=== PATIENT | male | born 1965 ===

== ENCOUNTER 2018-06-28 10:00 | Emergency (ER) | payer OTHER ==
[2018-06-28 14:32] LABS: BASO % 0.4 % (0.0-2.0); EOS % 0.3 % (0.0-4.0); HEMOGLOBIN 16.6 g/dL (12.0-18.0); LYMPH # 2.5 K/uL (1.0-4.3); LYMPH % 27.7 % (20.0-40.0); MEAN CELL VOLUME 92.1 fl (80.0-94.0); MEAN CORPUSCULAR HEMOGLOBIN 30.9 pg (27.0-31.0); MEAN CORPUSCULAR HGB CONC 33.5 g/dL (33.0-37.0); MEAN PLATELET VOLUME 10.5 fl (7.2-11.7); MONO # 0.5 K/uL (0.0-0.8); MONO % 5.3 % (0.0-10.0); NEUT % 66.3 % (50.0-75.0); NRBC % 0.3 % (0.0-0.0); RBC 5.37 Mil/uL (4.40-5.90); RED CELL DISTRIBUTION WIDTH 12.6 % (11.5-14.5)
[2018-06-28 14:34] LABS: BLOOD UREA NITROGEN 13 mg/dl (9-20); CALCIUM 9.8 mg/dL (8.4-10.2); GFR NON-AFRICAN AMERICAN > 60
[2018-06-28 14:35] LABS: BARBITURATES, UR NEGATIVE (NEGATIVE); BENZODIAZEPINES, UR NEGATIVE (NEGATIVE); OPIATES, UR NEGATIVE (NEGATIVE); PHENCYCLIDINE, UR NEGATIVE (NEGATIVE)
[2018-06-28 15:46] VITALS: BP 131/80; PULSE 65; RESP 16; TEMP 98.9; O2SAT 99
--- NOTE | 2018-06-28 16:08 | CT ---
Date of service: 06/28/2018 PROCEDURE: CT HEAD WITHOUT CONTRAST. HISTORY: headache COMPARISON: None. TECHNIQUE: Axial computed tomography images were obtained through the head/brain without intravenous contrast. Supplemental Coronal and Sagittal projections created and reviewed. Radiation dose: Total exam DLP = 738.27 mGy-cm. This CT exam was performed using one or more of the following dose reduction techniques: Automated exposure control, adjustment of the mA and/or kV according to patient size, and/or use of iterative reconstruction technique. FINDINGS: HEMORRHAGE: No intracranial hemorrhage. BRAIN: No mass effect or edema. No atrophy or chronic microvascular ischemic changes. VENTRICLES: Unremarkable. No hydrocephalus. CALVARIUM: Unremarkable. PARANASAL SINUSES: Unremarkable as visualized. No significant inflammatory changes. MASTOID AIR CELLS: Unremarkable as visualized. No inflammatory changes. OTHER FINDINGS: None. IMPRESSION: No acute intracranial abnormalities. No significant findings to account for the clinical presentation.
--- NOTE | 2018-07-02 09:13 | CARD ---
APPROVED REPORT Date of service: 06/28/2018 EKG Measurement Heart [id number] <Conclusion> Normal sinus rhythm Left axis deviation Abnormal ECG
== END 2018-06-28 17:00 | disposition home or self-care (01) ==
LOC: H.ER 10:00 → H.EDDOWN 10:00 → H.ER 17:00
DX: R51 Headache (principal); E11.9 Type 2 diabetes mellitus without complications; F19.10 Other psychoactive substance abuse, uncomplicated

== ENCOUNTER 2018-06-29 21:45 | Inpatient (IN) | payer OTHER ==
[2018-06-29] MEDS ORDERED: Sodium Chloride 0.9% 50 ML IV ONE (22:24)
[2018-06-29] MEDS ORDERED: Iodixanol 320 MG/ML 100 ML BOTTLE IV ONE (22:24)
--- NOTE | 2018-06-29 22:24 | ED PDOC ---
HPI: Seizure Time Seen by Provider: 06/29/18 21:55 Chief Complaint (Nursing): Seizure Chief Complaint (Provider): Seizure History Per: Family History/Exam Limitations: no limitations Recent Seizure Activity Began: Hours Ago: (x 3) Number Of Seizures: One Length Of Seizures (Duration): Unknown Quality Of Seizure: Focal Involving: Precipitating Factor(s): None Additional Complaint(s): 53 year old male with medical history of DM presents to the ED with headache, two episodes of vomiting, new onset seizure and nystagmus. Around 7pm tonight, three hours prior to arrival, patient had a witnessed seizure. His family then called EMS. In ambulance, according to family, patient threw up blood and was given no medications. Difficult to obtain history from . However, patient's sister reports this was his first seizure. After discharge yesterday, patient stayed in bed all day because he was tired and unable to walk or talk. Patient was seen in this ED yesterday at 10:00 for evaluation of right sided headache and discharged with a diagnosis of diabetes and Metformin. He was previously diagnosed with hypertension in [facility] and does not take any medications for it. He is unable to provide history due to clinical condition. PMD: none provided NIHSS Stroke Scale - Date/Time Evaluation Performed Date Performed: 06/29/18 Time Performed: 09:50 When Was NIHSS Performed: Baseline - How Severe is the Stroke Level of Consciousness: 1=Drowsy (arousable to minor stimuli) LOC to Questions: 1=One correct (month and age) LOC to commands: 2=Neither correct (diffcult to evaluate rest of exam because patient is not following commands. However, he was seen moving all extremities) Best Gaze: 1=Partial gaze palsy (horizontal partial gaze palsy that can be overcome) Visual: 0=No visual loss Facial: 0=Normal Motor Arm - Left: 0=No drift Motor Arm - Right: 0=No drift Motor Leg - Left: 0=No drift Motor Leg - Right: 0=No drift Limb Ataxia: 0=Absent Sensory: 0=Normal Best Language: 0=No aphasia Dysarthia: 0=Normal articulation Extinction & Inattention (Neglect): 0=Normal, no object Score: 5 Past Medical History Reviewed: Historical Data, Nursing Documentation, Vital Signs Vital Signs: Last Vital Signs Temp 96.7 F L 06/29/18 21:48 Pulse 84 06/29/18 21:48 Resp 18 06/29/18 21:48 BP 144/62 06/29/18 21:48 Pulse Ox 98 06/29/18 21:48 - Medical History PMH: Diabetes, HTN Denies: Chronic Kidney Disease - Surgical History Surgical History: No Surg Hx - Family History Family History: States: Unknown Family Hx - Home Medications Home Medications: Ambulatory Orders Medication Instructions Recorded metFORMIN [glucOPHAGE] 250 mg PO BID #60 tab 06/28/18 - Allergies Allergies/Adverse Reactions: Allergies Allergy/AdvReac Type Severity Reaction Status Date / Time No Known Allergies Allergy Verified 06/29/18 21:48 Review of Systems ROS Statement: Except As Marked, All Systems Reviewed And Found Negative Eyes: Positive for: Other (right nystagmus ) Neurological: Positive for: Seizures (1; x 3 hours prior to arrival), Altered Mental Status, Headache (right) Physical Exam - Reviewed Nursing Documentation Reviewed: Yes Vital Signs Reviewed: Yes - Physical Exam Appears: Positive for: In Acute Distress Head Exam: Positive for: ATRAUMATIC, NORMAL INSPECTION, NORMOCEPHALIC Skin: Positive for: Normal Color, Warm, Dry Eye Exam: Positive for: Nystagmus (new onset, right sided nystagmus) Neck: Positive for: Normal, Painless ROM, Supple Cardiovascular/Chest: Positive for: Regular Rate, Rhythm. Negative for: Murmur Respiratory: Positive for: Normal Breath Sounds. Negative for: Wheezing, Respiratory Distress Gastrointestinal/Abdominal: Positive for: Normal Exam, Soft. Negative for: Tenderness Back: Positive for: Normal Inspection. Negative for: L CVA Tenderness, R CVA Tenderness Extremity: Positive for: Normal ROM (moving all extremities slowly). Negative for: Deformity Neurological/Psych: Positive for: Other (Slowly increasing following commands as evaluation went on) - Laboratory Results Result Diagrams: 07/04/18 04:30 07/04/18 04:30 - ECG O2 Sat by Pulse Oximetry: 98 - Core Measure Core Measure Indicators: Code Stroke - Critical Care Total Time (In Min): 60 Medical Decision Making Medical Decision Makin:05 MDM: new onset seizure activity r/o stroke; hyperglycemia with newly onset diabetes yesterday --CT Head w/o contrast --CK-MB --BNP --Creatinine --CRP --Lipid panel --T3 --T4 --TSH --Troponin --Vitamin B12 --ESR --UA 22:30 Results read to this provider from radiologist: CT is unremarkable. Waiting on results of CT angio. Patient began vomiting in CT requiring Zofran. He is complaining of severe headache and is favoring his left side. Lactate level 6.1. --Blood type --VBG --Acetaminophen --Alcohol --CMP --UDS --Salicylate --Troponin --BNP --CBC w diff --PTT --PT --NS IV 1,000 mls 23:[address] Stockton and discussed case. He recommends aspirin and admission. Will follow up with patient. Low suspicion for stroke. --Ativan 2 mg IV --Aspirin 325 mg PO --Toradol 30 mg IM --Reglan 10 mg PO --- Scribe Attestation: Documented by Ariella Sousa, acting as a scribe Chato Maria MD Provider Scribe Attestation: All medical record entries made by the Scribe were at my direction and personally dictated by me. I have reviewed the chart and agree that the record accurately reflects my personal performance of the history, physical exam, medical decision making, and the department course for this patient. I have also personally directed, reviewed, and agree with the discharge instructions and disposition. Disposition - Clinical Impression Clinical Impression: Seizure disorder, Substance abuse, Headache - Disposition Disposition Time: 23:00 Condition: GUARDED
[2018-06-29] MEDS ORDERED: Sodium Chloride 0.9% 1,000 ML IV STA ×2 (22:31→23:07)
[2018-06-29 22:39] LABS: VENOUS BLOOD GAS BASE EXCESS -2.4 mmol/L (0.0-2.0); VENOUS BLOOD GAS PCO2 42 mmHg (40-60); VENOUS BLOOD GAS PO2 29 mm/Hg (30-55); VENOUS BLOOD PH 7.35 (7.32-7.43)
[2018-06-29 22:46] LABS: BASO % 0.2 % (0.0-2.0); EOS % 0.1 % (0.0-4.0); HEMOGLOBIN 16.4 g/dL (12.0-18.0); LYMPH # 1.3 K/uL (1.0-4.3); LYMPH % 11.7 % (20.0-40.0); MEAN CELL VOLUME 92.6 fl (80.0-94.0); MEAN CORPUSCULAR HEMOGLOBIN 30.5 pg (27.0-31.0); MEAN CORPUSCULAR HGB CONC 32.9 g/dL (33.0-37.0); MEAN PLATELET VOLUME 10.8 fl (7.2-11.7); MONO # 0.5 K/uL (0.0-0.8); MONO % 4.5 % (0.0-10.0); NEUT # 9.6 K/uL (1.8-7.0); NEUT % 83.5 % (50.0-75.0); NRBC % 0.2 % (0.0-0.0); RBC 5.39 Mil/uL (4.40-5.90); RED CELL DISTRIBUTION WIDTH 12.3 % (11.5-14.5); WHITE BLOOD COUNT 11.5 K/uL (4.8-10.8)
[2018-06-29 22:54] LABS: PROTHROMBIN TIME 11.1 Seconds (9.8-13.1)
[2018-06-29 23:01] LABS: ALB/GLOB RATIO 1.4 (1.0-2.1); ALBUMIN 4.6 g/dL (3.5-5.0); ALT/SGPT 31 U/L (21-72); AST/SGOT 21 U/L (17-59); BLOOD UREA NITROGEN 10 mg/dl (9-20); CALCIUM 9.7 mg/dL (8.4-10.2); GFR NON-AFRICAN AMERICAN > 60
[2018-06-29 23:01] LABS: ACETAMINOPHEN < 10.0 ug/ml (10.0-30.0); SALICYLATE < 1.0 mg/dl
[2018-06-29] MEDS ORDERED: Aspirin 325 mg EC Tablets PO ONE (23:51)
[2018-06-29] MEDS: Aspirin 325 mg EC Tablets PO SCH ×2 (23:58→23:59)
[2018-06-30] MEDS ORDERED: Glucagon Recombinant 1 mg Inj IM PRN (00:33)
[2018-06-30] MEDS ORDERED: Dextrose 50% SYRINGE Inj (50 ml) IV PRN (00:33)
--- NOTE | 2018-06-30 00:57 | CP.PCM.HP ---
<Susan Osman - Last Filed: 06/30/18 01:52> History of Present Illness - History of Present Illness History of Present Illness: This is 53 y/o male with PMH of HTN and recently diagnosed DM-II admitted to [facility] for evaluation and treatment of new onset seizures. As per family, Patient had witnessed seizure like activities where he was found to have with nystagmus and bloody vomiting. Patient was confused and lethargic at home, family denies any previous episodes of seizures but reports patient has been c/o headaches since last few days. Patient was seen in this ED yesterday at 10:00 for e valuation of right sided headache and discharged with a diagnosis of diabetes and Metformin. He was previously diagnosed with hypertension in [facility] and does not take any medications for it. He is unable to provide history due to clinical condition but currently patient is AAOx3, denies any chest pain, SOB, or abdominal pain. PMD: None PMH: HTN and Newly diagnosed DM-II PSH: Denies Meds: Denies Allg: NKDA SH: + 1 pack/day smoking, + illicit drug use/cocaine and + daily alcohol use FH: + DM-II and Heart disease ROS: As per HPI ER Course: VS: Stable, afebrile, HR 84, 144/62, Spo2 98% RA CBC: wbc 11.5 VBG: P02 29, Lactate 6.1 CMP: Anion gap 22, BS 347 Negative trop Urine drug + cocaine yesterday Code Stroke in ER S/p CT head: no stroke S/p Neuro consult S/p Ativan 2 mg IV , Aspirin 325 mg PO, Toradol 30 mg IM, Reglan 10 mg PO S/p 2L bolus NS Present on Admission - Present on Admission Any Indicators Present on Admission: No History of DVT/PE: No History of Uncontrolled Diabetes: No Review of Systems - Constitutional Constitutional: Headache. absent: Excessive Sweating, Frequent Falls - EENT Eyes: absent: Blurred Vision Ears: absent: Decreased Hearing Nose/Mouth/Throat: absent: Nasal Congestion - Cardiovascular Cardiovascular: absent: Chest Pain - Respiratory Respiratory: absent: Cough, Dyspnea, Wheezing - Gastrointestinal Gastrointestinal: absent: Abdominal Pain - Genitourinary Genitourinary: absent: Change in Urinary Stream - Musculoskeletal Musculoskeletal: absent: Abnormal Gait - Integumentary Integumentary: absent: Changing Lesions, Rash - Neurological Neurological: absent: Abnormal Hearing - Psychiatric Psychiatric: absent: Anxiety - Endocrine Endocrine: absent: Excessive Sweating - Hematologic/Lymphatic Hematologic: absent: Easy Bleeding Past Patient History - Past Social History Smoking Status: Light Smoker < 10 Cigarettes Daily - CARDIAC Hx Hypertension: Yes - PULMONARY Hx Respiratory Disorders: No - NEUROLOGICAL Hx Neurological Disorder: No - HEENT Hx HEENT Problems: No - RENAL Hx Chronic Kidney Disease: No - ENDOCRINE/METABOLIC Hx Endocrine Disorders: No Hx Diabetes Mellitus Type 2: Yes (recently diagnosed) - HEMATOLOGICAL/ONCOLOGICAL Hx Blood Disorders: No - INTEGUMENTARY Hx Dermatological Problems: No - MUSCULOSKELETAL/RHEUMATOLOGICAL Hx Musculoskeletal Disorders: No - GASTROINTESTINAL Hx Gastrointestinal Disorders: No - GENITOURINARY/GYNECOLOGICAL Hx Genitourinary Disorders: No - PSYCHIATRIC Hx Psychophysiologic Disorder: No Hx Substance Use: No - SURGICAL HISTORY Hx Surgeries: No - ANESTHESIA Hx Anesthesia: No Meds Allergies/Adverse Reactions: Allergies Allergy/AdvReac Type Severity Reaction Status Date / Time No Known Allergies Allergy Verified 06/29/18 21:48 Physical Exam - Constitutional Appears: No Acute Distress - Head Exam Head Exam: ATRAUMATIC, NORMAL INSPECTION, NORMOCEPHALIC - Eye Exam Eye Exam: EOMI, Normal appearance, PERRL Pupil Exam: NORMAL ACCOMODATION - ENT Exam ENT Exam: Mucous Membranes Moist - Neck Exam Neck exam: Positive for: Normal Inspection - Respiratory Exam Respiratory Exam: Clear to Auscultation Bilateral, NORMAL BREATHING PATTERN. absent: Wheezes - Cardiovascular Exam Cardiovascular Exam: REGULAR RHYTHM, +S1, +S2 - GI/Abdominal Exam GI & Abdominal Exam: Normal Bowel Sounds, Soft. absent: Tenderness - Extremities Exam Extremities exam: Positive for: normal inspection. Negative for: tenderness - Back Exam Back exam: NORMAL INSPECTION. absent: CVA tenderness (L), CVA tenderness (R) - Neurological Exam Neurological exam: Alert, CN II-XII Intact, Oriented x3 - Skin Skin Exam: Dry, Intact, Normal Color, Warm Results - Vital Signs Recent Vital Signs: Last Vital Signs Temp 99.9 F H 06/30/18 00:49 Pulse 86 06/30/18 00:49 Resp 17 06/30/18 00:49 BP 149/95 H 06/30/18 00:49 Pulse Ox 100 06/30/18 00:49 - Labs Result Diagrams: 06/29/18 22:31 06/29/18 22:34 Labs: Laboratory Results - last 24 hr 06/29/18 06/29/18 06/29/18 21:55 22:31 22:31 WBC 11.5 H RBC 5.39 Hgb 16.4 Hct 49.9 MCV 92.6 MCH 30.5 MCHC 32.9 L RDW 12.3 Plt Count 241 MPV 10.8 Neut % (Auto) 83.5 H Lymph % (Auto) 11.7 L Dubois % (Auto) 4.5 Eos % (Auto) 0.1 Baso % (Auto) 0.2 Neut # (Auto) 9.6 H Lymph # (Auto) 1.3 Dubois # (Auto) 0.5 Eos # (Auto) 0.0 Baso # (Auto) 0.0 PT INR APTT pO2 VBG pH VBG pCO2 VBG HCO3 VBG Total CO2 VBG O2 Sat (Calc) VBG Base Excess VBG Potassium Sodium Chloride Glucose Lactate FiO2 Crit Value Called To Crit Value Called By Crit Value Read Back Blood Gas Notified Time Potassium Carbon Dioxide Anion Gap BUN Creatinine Est GFR ( Amer) Est GFR (Non-Af Amer) POC Glucose (mg/dL) 364 H Random Glucose Calcium Total Bilirubin AST ALT Alkaline Phosphatase Troponin I Total Protein Albumin Globulin Albumin/Globulin Ratio Venous Blood Potassium Salicylates < 1.0 Acetaminophen < 10.0 L Alcohol, Quantitative Blood Type Antibody Screen BBK History Checked 06/29/18 06/29/18 06/29/18 22:33 22:34 22:34 WBC RBC Hgb Hct MCV MCH MCHC RDW Plt Count MPV Neut % (Auto) Lymph % (Auto) Dubois % (Auto) Eos % (Auto) Baso % (Auto) Neut # (Auto) Lymph # (Auto) Dubois # (Auto) Eos # (Auto) Baso # (Auto) PT 11.1 INR 1.0 APTT 28.0 pO2 29 L VBG pH 7.35 VBG pCO2 42 VBG HCO3 21.8 VBG Total CO2 24.5 VBG O2 Sat (Calc) 62.9 VBG Base Excess -2.4 L VBG Potassium 4.4 Sodium 134.0 136 Chloride 98.0 98 Glucose 373 H Lactate 6.1 H* FiO2 21.0 Crit Value Called To Kaleigh segovia md Crit Value Called By 6075 Crit Value Read Back Y Blood Gas Notified Time 2239 Potassium 4.2 Carbon Dioxide 20 L Anion Gap 22 H BUN 10 Creatinine 0.9 Est GFR ( Amer) > 60 Est GFR (Non-Af Amer) > 60 POC Glucose (mg/dL) Random Glucose 347 H Calcium 9.7 Total Bilirubin 0.6 AST 21 ALT 31 Alkaline Phosphatase 112 Troponin I < 0.0120 Total Protein 7.9 Albumin 4.6 Globulin 3.3 Albumin/Globulin Ratio 1.4 Venous Blood Potassium 4.4 Salicylates Acetaminophen Alcohol, Quantitative < 10 Blood Type Antibody Screen BBK History Checked 06/29/18 22:34 WBC RBC Hgb Hct MCV MCH MCHC RDW Plt Count MPV Neut % (Auto) Lymph % (Auto) Dubois % (Auto) Eos % (Auto) Baso % (Auto) Neut # (Auto) Lymph # (Auto) Dubois # (Auto) Eos # (Auto) Baso # (Auto) PT INR APTT pO2 VBG pH VBG pCO2 VBG HCO3 VBG Total CO2 VBG O2 Sat (Calc) VBG Base Excess VBG Potassium Sodium Chloride Glucose Lactate FiO2 Crit Value Called To Crit Value Called By Crit Value Read Back Blood Gas Notified Time Potassium Carbon Dioxide Anion Gap BUN Creatinine Est GFR ( Amer) Est GFR (Non-Af Amer) POC Glucose (mg/dL) Random Glucose Calcium Total Bilirubin AST ALT Alkaline Phosphatase Troponin I Total Protein Albumin Globulin Albumin/Globulin Ratio Venous Blood Potassium Salicylates Acetaminophen Alcohol, Quantitative Blood Type A POSITIVE Antibody Screen Negative BBK History Checked No verified bt Assessment & Plan - Assessment and Plan (Free Text) Assessment: A/P: 53 y/o male with PMH of HTN and recently diagnosed DM-II admitted to [facility] for evaluation and treatment of new onset seizures. New Onset Seizures - Consult Neurology, Dr. Stockton, recommendations appreciated - EKG: NSR, LAD - F/u CXR - CT head: No stoke - F/u Head and neck CTA - F/u EEG tomorrow - F/u Urine drug, A1C, TSH, B12, Folate, Vit D, Lipids, Lactic acid, CRP, Prolactin - C/w IVF - Ativan 2mg PRN for seizures Headaches, Nausea and Vomiting - Acute - Tylenol PRN for headache - Zofran 4mg IV PRN Elevated Lactate in VBG - Likely due to Seizures - S/p 2L NS IVF - C/w Fluids Newly diagnosed DM-II - F/u A1C - Sliding scale and Hypoglycemic protocol - AccuCheck ACHS Hypertension - Chronic, not on any medication - Monitor, consider medication Case discussed and patient seen with Dr. Khan before midnight <Ru Khan - Last Filed: 06/30/18 06:41> Results - Vital Signs Recent Vital Signs: Last Vital Signs Temp 99.3 F 06/30/18 04:51 Pulse 77 06/30/18 04:51 Resp 18 06/30/18 04:51 BP 130/81 06/30/18 04:51 Pulse Ox 100 06/30/18 04:51 - Labs Result Diagrams: 06/30/18 05:00 06/30/18 05:00 Labs: Laboratory Results - last 24 hr 06/29/18 06/29/18 06/29/18 21:55 22:31 22:31 WBC 11.5 H RBC 5.39 Hgb 16.4 Hct 49.9 MCV 92.6 MCH 30.5 MCHC 32.9 L RDW 12.3 Plt Count 241 MPV 10.8 Neut % (Auto) 83.5 H Lymph % (Auto) 11.7 L Dubois % (Auto) 4.5 Eos % (Auto) 0.1 Baso % (Auto) 0.2 Neut # (Auto) 9.6 H Lymph # (Auto) 1.3 Dubois # (Auto) 0.5 Eos # (Auto) 0.0 Baso # (Auto) 0.0 PT INR APTT pO2 VBG pH VBG pCO2 VBG HCO3 VBG Total CO2 VBG O2 Sat (Calc) VBG Base Excess VBG Potassium Sodium Chloride Glucose Lactate FiO2 Crit Value Called To Crit Value Called By Crit Value Read Back Blood Gas Notified Time Potassium Carbon Dioxide Anion Gap BUN Creatinine Est GFR ( Amer) Est GFR (Non-Af Amer) POC Glucose (mg/dL) 364 H Random Glucose Lactic Acid Calcium Phosphorus Magnesium Total Bilirubin AST ALT Alkaline Phosphatase Troponin I Total Protein Albumin Globulin Albumin/Globulin Ratio Triglycerides Cholesterol LDL Cholesterol Direct HDL Cholesterol Venous Blood Potassium Salicylates < 1.0 Acetaminophen < 10.0 L Alcohol, Quantitative Blood Type Antibody Screen BBK History Checked 0406/29/18 06/29/18 22:33 22:34 22:34 WBC RBC Hgb Hct MCV MCH MCHC RDW Plt Count MPV Neut % (Auto) Lymph % (Auto) Dubois % (Auto) Eos % (Auto) Baso % (Auto) Neut # (Auto) Lymph # (Auto) Dubois # (Auto) Eos # (Auto) Baso # (Auto) PT 11.1 INR 1.0 APTT 28.0 pO2 29 L VBG pH 7.35 VBG pCO2 42 VBG HCO3 21.8 VBG Total CO2 24.5 VBG O2 Sat (Calc) 62.9 VBG Base Excess -2.4 L VBG Potassium 4.4 Sodium 134.0 136 Chloride 98.0 98 Glucose 373 H Lactate 6.1 H* FiO2 21.0 Crit Value Called To Kaleigh segovia md Crit Value Called By 6084 Crit Value Read Back Y Blood Gas Notified Time 2239 Potassium 4.2 Carbon Dioxide 20 L Anion Gap 22 H BUN 10 Creatinine 0.9 Est GFR ( Amer) > 60 Est GFR (Non-Af Amer) > 60 POC Glucose (mg/dL) Random Glucose 347 H Lactic Acid Calcium 9.7 Phosphorus Magnesium Total Bilirubin 0.6 AST 21 ALT 31 Alkaline Phosphatase 112 Troponin I < 0.0120 Total Protein 7.9 Albumin 4.6 Globulin 3.3 Albumin/Globulin Ratio 1.4 Triglycerides Cholesterol LDL Cholesterol Direct HDL Cholesterol Venous Blood Potassium 4.4 Salicylates Acetaminophen Alcohol, Quantitative < 10 Blood Type Antibody Screen BBK History Checked 06/29/18 06/30/18 06/30/18 22:34 05:00 05:00 WBC 15.0 H RBC 4.90 Hgb 14.9 Hct 45.0 MCV 91.8 MCH 30.4 MCHC 33.0 RDW 12.3 Plt Count 205 MPV 10.1 Neut % (Auto) 78.0 H Lymph % (Auto) 15.6 L Dubois % (Auto) 6.2 Eos % (Auto) 0.0 Baso % (Auto) 0.2 Neut # (Auto) 11.7 H Lymph # (Auto) 2.3 Dubois # (Auto) 0.9 H Eos # (Auto) 0.0 Baso # (Auto) 0.0 PT INR APTT pO2 VBG pH VBG pCO2 VBG HCO3 VBG Total CO2 VBG O2 Sat (Calc) VBG Base Excess VBG Potassium Sodium 138 Chloride 103 Glucose Lactate FiO2 Crit Value Called To Crit Value Called By Crit Value Read Back Blood Gas Notified Time Potassium 4.0 Carbon Dioxide 26 Anion Gap 13 BUN 11 Creatinine 0.8 Est GFR ( Amer) > 60 Est GFR (Non-Af Amer) > 60 POC Glucose (mg/dL) Random Glucose 204 H Lactic Acid Calcium 8.6 Phosphorus Magnesium Total Bilirubin 0.6 AST 19 ALT 33 Alkaline Phosphatase 84 Troponin I Total Protein 6.7 Albumin 3.8 Globulin 2.9 Albumin/Globulin Ratio 1.3 Triglycerides Cholesterol LDL Cholesterol Direct HDL Cholesterol Venous Blood Potassium Salicylates Acetaminophen Alcohol, Quantitative Blood Type A POSITIVE Antibody Screen Negative BBK History Checked No verified bt 06/30/18 06/30/18 06/30/18 05:00 05:20 05:27 WBC RBC Hgb Hct MCV MCH MCHC RDW Plt Count MPV Neut % (Auto) Lymph % (Auto) Dubois % (Auto) Eos % (Auto) Baso % (Auto) Neut # (Auto) Lymph # (Auto) Dubois # (Auto) Eos # (Auto) Baso # (Auto) PT INR APTT pO2 VBG pH VBG pCO2 VBG HCO3 VBG Total CO2 VBG O2 Sat (Calc) VBG Base Excess VBG Potassium Sodium Chloride Glucose Lactate FiO2 Crit Value Called To Crit Value Called By Crit Value Read Back Blood Gas Notified Time Potassium Carbon Dioxide Anion Gap BUN Creatinine Est GFR ( Amer) Est GFR (Non-Af Amer) POC Glucose (mg/dL) 228 H Random Glucose Lactic Acid 1.3 Calcium Phosphorus 3.9 Magnesium 1.7 Total Bilirubin AST ALT Alkaline Phosphatase Troponin I Total Protein Albumin Globulin Albumin/Globulin Ratio Triglycerides 117 Cholesterol 144 LDL Cholesterol Direct 77 HDL Cholesterol 41 Venous Blood Potassium Salicylates Acetaminophen Alcohol, Quantitative Blood Type Antibody Screen BBK History Checked Assessment & Plan - Assessment and Plan (Free Text) Plan: This is a late entry. Patient was seen by me in the ED before midnight on 06/29/18. History as documented by resident was reviewed with patient and resident. I performed the menjivar elements of exam and agree with the above findings. Diagnostics were reviewed and medical decision making and plan of care performed by me. 53 yo male with hx of HTN, PSA (active smoker, everyday drinker and cocaine and cannabis user) recently diagnosed yesterday in our ED with DM-II p/w witnessed seizure. Questionable bloody vomiting. History not very accurate as patient and family not able to provide much info. Upon my exam he was AAOx3 and neuro-exam was completely non-focal. Lungs clear b/l. S1/S2, RRR. CT head was negative and blood work unremarkable except for Lactic acid of 6.1 with gap of 22 and normal PH and a mild leukocytosis and glucose of 350. Neurology was called and recommended EEG and CTA head. Will admit to tele floor with frequent neuro-checks and will follow neurology recommendations. Seizure precautions. As needed Ativan for break-through seizure.
[2018-06-30] MEDS: Sodium Chloride 0.9% 1,000 ML IV SCH ×3 (01:57→19:50)
[2018-06-30 05:20] LABS: BASO % 0.2 % (0.0-2.0); HEMOGLOBIN 14.9 g/dL (12.0-18.0); LYMPH # 2.3 K/uL (1.0-4.3); LYMPH % 15.6 % (20.0-40.0); MEAN CELL VOLUME 91.8 fl (80.0-94.0); MEAN CORPUSCULAR HEMOGLOBIN 30.4 pg (27.0-31.0); MEAN PLATELET VOLUME 10.1 fl (7.2-11.7); MONO # 0.9 K/uL (0.0-0.8); MONO % 6.2 % (0.0-10.0); NEUT # 11.7 K/uL (1.8-7.0); RBC 4.9 Mil/uL (4.40-5.90); RED CELL DISTRIBUTION WIDTH 12.3 % (11.5-14.5)
[2018-06-30 05:39] LABS: ALB/GLOB RATIO 1.3 (1.0-2.1); ALBUMIN 3.8 g/dL (3.5-5.0); ALT/SGPT 33 U/L (21-72); AST/SGOT 19 U/L (17-59); BLOOD UREA NITROGEN 11 mg/dl (9-20); CALCIUM 8.6 mg/dL (8.4-10.2); GFR NON-AFRICAN AMERICAN > 60
[2018-06-30 07:05] LABS: URINE BILIRUBIN NEGATIVE (NEGATIVE); URINE BLOOD NEGATIVE (NEGATIVE); URINE CLARITY CLEAR (Clear); URINE COLOR YELLOW (YELLOW); URINE GLUCOSE (UA) >=500 mg/dL (NEGATIVE); URINE LEUKOCYTE ESTERASE NEG Leu/uL (Negative); URINE PROTEIN NEGATIVE (NEGATIVE); URINE UROBILINOGEN 0.2-1.0 mg/dL (0.2-1.0)
[2018-06-30 07:30] LABS: BARBITURATES, UR NEGATIVE (NEGATIVE); BENZODIAZEPINES, UR NEGATIVE (NEGATIVE); OPIATES, UR POSITIVE (NEGATIVE); PHENCYCLIDINE, UR NEGATIVE (NEGATIVE)
[2018-06-30] MEDS: Pantoprazole 40 mg EC Tab PO SCH (09:31)
[2018-06-30] MEDS: Insulin Lispro (humaLOG) 100 Units/ml Inj SC SCH ×4 (09:31→22:30)
--- NOTE | 2018-06-30 11:07 | CP.PCM.CON ---
History of Present Illness - History of Present Illness History of Present Illness: Initial Neurology Consultation Note Consultation requested by: Dr. Susan Osman Mr. Nikolai Lerner is a 53 y/o male with a PMHx of HTN and NIDDM who was admitted last night for new onset seizure. Spouse states that she witnessed him laying in bed at approx 8pm last night when he suddenly stopped responding to her, and at that time he began foaming at the mouth. Per spouse there was no shaking of the body or rigidity. He did not fall from the bed or sustain any head injury during this episode. Pt does state that he remembers having a right sided headache and blurred vision before this episode. Per the pt this is the first time he has had this happen to him. He states that he is usually healthy. He was recently diagnosed with NIDDM and started on Metformin while in the [place]. He does not have a PMD here in the [facility] but is willing to establish himself in the [facility]. He admits to "weekly" ETOH use; states that he drinks less than a 1 liter bottle of vodka once a week; last drink was approx 1 week ago. He also admits to cigarette and "occasional" marijuana use; refused any other drug use to me, however, family states that he uses cocaine and other drugs that they do not know the names of. Currently, the pt states that he feels good and offers no complaints. Denies h/a, dizziness, visual changes, chest pain, palpitations, sob, cough, dysuria, abd pain, n/v/d, fever/chills, paresthesias. Neurology has been consulted to assist in the management and care of this pt. Review of Systems - Constitutional Constitutional: As Per HPI - EENT Eyes: As Per HPI Ears: As Per HPI Nose/Mouth/Throat: As Per HPI - Cardiovascular Cardiovascular: As Per HPI - Respiratory Respiratory: As Per HPI - Gastrointestinal Gastrointestinal: As Per HPI - Genitourinary Genitourinary: As Per HPI - Reproductive: Male Reproductive:Male: As Per HPI - Musculoskeletal Musculoskeletal: As Per HPI - Integumentary Integumentary: As Per HPI - Neurological Neurological: As Per HPI - Psychiatric Psychiatric: As Per HPI - Endocrine Endocrine: As Per HPI - Hematologic/Lymphatic Hematologic: As Per HPI Past Patient History - Infectious Disease Hx of Infectious Diseases: None - Tetanus Immunizations Tetanus Immunization: Unknown - Past Medical History & Family History Past Medical History?: Yes Past Family History: Reviewed and not pertinent (6 siblings: denies PMHx; Mother has NIDDM; Father no PMHx per pt) - Past Social History Smoking Status: Light Smoker < 10 Cigarettes Daily Chewing Tobacco Use: No Cigar Use: No Occupation: works in a [employer] Alcohol: Other (weekly, less than 1 liter of vodka per pt; last drink 1 week ago) Drugs: Cannabis ("occasional" per pt ), Other (per family pt actively uses cocaine and other unknown drugs; pt denied drug use to me.) Home Situation {Lives}: With Family Domestic Violence: Negative - CARDIAC Hx Hypertension: Yes - PULMONARY Hx Respiratory Disorders: No - NEUROLOGICAL Hx Neurological Disorder: No - HEENT Hx HEENT Problems: No - RENAL Hx Chronic Kidney Disease: No - ENDOCRINE/METABOLIC Hx Endocrine Disorders: No Hx Diabetes Mellitus Type 2: Yes (recently diagnosed) - HEMATOLOGICAL/ONCOLOGICAL Hx Blood Disorders: No - INTEGUMENTARY Hx Dermatological Problems: No - MUSCULOSKELETAL/RHEUMATOLOGICAL Hx Musculoskeletal Disorders: No - GASTROINTESTINAL Hx Gastrointestinal Disorders: No - GENITOURINARY/GYNECOLOGICAL Hx Genitourinary Disorders: No - PSYCHIATRIC Hx Psychophysiologic Disorder: No Hx Substance Use: No - SURGICAL HISTORY Hx Surgeries: No - ANESTHESIA Hx Anesthesia: No Meds Allergies/Adverse Reactions: Allergies Allergy/AdvReac Type Severity Reaction Status Date / Time No Known Allergies Allergy Verified 06/29/18 21:48 - Medications Medications: Current Medications Acetaminophen (Tylenol 325mg Tab) 650 mg PO Q6 PRN PRN Reason: Headache Aspirin (Ecotrin) 325 mg PO DAILY [facility] Last Admin: 06/29/18 23:59 Dose: 325 mg Dextrose (Dextrose 50% Inj) 0 ml IV STAT PRN; Protocol PRN Reason: Hypoglycemia Protocol Dextrose (Glutose 15) 0 gm PO ONCE PRN; Protocol PRN Reason: Hypoglycemia Protocol Glucagon (Glucagen Diagnostic Kit) 0 mg IM STAT PRN; Protocol PRN Reason: Hypoglycemia Protocol Sodium Chloride (Sodium Chloride 0.9%) 1,000 mls @ 100 mls/hr IV .Q10H [facility] Last Admin: 06/30/18 01:57 Dose: 100 mls/hr Ibuprofen (Motrin Tab) 400 mg PO Q6 PRN PRN Reason: Pain, moderate (4-7) Insulin Human Lispro (Humalog) 0 units SC ACHS [facility]; Protocol Last Admin: 06/30/18 09:31 Dose: 3 units Ketorolac Tromethamine (Toradol) 15 mg IVP Q6 PRN PRN Reason: Pain, severe (8-10) Lorazepam (Ativan) 2 mg IVP Q6 PRN PRN Reason: Seizure activity Lorazepam (Ativan) 0.5 mg IVP Q6H PRN PRN Reason: Agitation Ondansetron HCl (Zofran Inj) 4 mg IVP Q6 PRN PRN Reason: Nausea/Vomiting Pantoprazole Sodium (Protonix Ec Tab) 40 mg PO DAILY [facility] Last Admin: 06/30/18 09:31 Dose: 40 mg Physical Exam - Constitutional Appears: Well, Non-toxic, No Acute Distress - Head Exam Head Exam: ATRAUMATIC, NORMAL INSPECTION, NORMOCEPHALIC - Eye Exam Eye Exam: EOMI, Normal appearance, PERRL. absent: Nystagmus Pupil Exam: NORMAL ACCOMODATION, PERRL Additional comments: No diplopia or blurred vision during exam per pt - ENT Exam ENT Exam: Mucous Membranes Moist, Normal Exam - Neck Exam Neck exam: Positive for: Full Rom, Normal Inspection - Respiratory Exam Respiratory Exam: NORMAL BREATHING PATTERN. absent: Accessory Muscle Use, Respiratory Distress - Cardiovascular Exam Cardiovascular Exam: REGULAR RHYTHM - GI/Abdominal Exam GI & Abdominal Exam: Soft. absent: Distended, Tenderness - Extremities Exam Extremities exam: Positive for: full ROM, normal inspection. Negative for: calf tenderness, pedal edema - Back Exam Back exam: FULL ROM, NORMAL INSPECTION - Neurological Exam Neurological exam: Alert, CN II-XII Intact, Oriented x3, Reflexes Normal Additional comments: Speech clear, fluid Follows all commands AAOx3 No facial asymmetry FROM to all extremities; no focal motor deficits. No dysmetria, no ataxia No sensory deficits. No tremors or abnormal movements. - Psychiatric Exam Psychiatric exam: Normal Mood Additional comments: Somewhat of a flat affect during the actual neuro interview and exam; unsure if he is in uncomfortable answering questions regarding his medical issues/drug use. After my exam was completed pt was smiling and making eye contact as normal. - Skin Skin Exam: Dry, Intact, Normal Color, Warm Results - Vital Signs Recent Vital Signs: Last Vital Signs Temp 97.8 F 06/30/18 08:06 Pulse 75 06/30/18 08:06 Resp 20 06/30/18 08:06 BP 104/52 L 06/30/18 08:06 Pulse Ox 99 06/30/18 08:06 - Labs Result Diagrams: 06/30/18 05:00 06/30/18 05:00 Labs: Laboratory Results - last 24 hr 06/29/18 06/29/18 06/29/18 21:55 22:31 22:31 WBC 11.5 H RBC 5.39 Hgb 16.4 Hct 49.9 MCV 92.6 MCH 30.5 MCHC 32.9 L RDW 12.3 Plt Count 241 MPV 10.8 Neut % (Auto) 83.5 H Lymph % (Auto) 11.7 L [place] % (Auto) 4.5 Eos % (Auto) 0.1 Baso % (Auto) 0.2 Neut # (Auto) 9.6 H Lymph # (Auto) 1.3 [place] # (Auto) 0.5 Eos # (Auto) 0.0 Baso # (Auto) 0.0 PT INR APTT pO2 VBG pH VBG pCO2 VBG HCO3 VBG Total CO2 VBG O2 Sat (Calc) VBG Base Excess VBG Potassium Sodium Chloride Glucose Lactate FiO2 Crit Value Called To Crit Value Called By Crit Value Read Back Blood Gas Notified Time Potassium Carbon Dioxide Anion Gap BUN Creatinine Est GFR ( Amer) Est GFR (Non-Af Amer) POC Glucose (mg/dL) 364 H Random Glucose Lactic Acid Calcium Phosphorus Magnesium Total Bilirubin AST ALT Alkaline Phosphatase Troponin I Total Protein Albumin Globulin Albumin/Globulin Ratio Triglycerides Cholesterol LDL Cholesterol Direct HDL Cholesterol Vitamin B12 Venous Blood Potassium Urine Color Urine Clarity Urine pH Ur Specific [place] Urine Protein Urine Glucose (UA) Urine Ketones Urine Blood Urine Nitrate Urine Bilirubin Urine Urobilinogen Ur Leukocyte Esterase Urine RBC (Auto) Urine Microscopic WBC Salicylates < 1.0 Urine Opiates Screen Urine Methadone Screen Acetaminophen < 10.0 L Ur Barbiturates Screen Ur Phencyclidine Scrn Ur Amphetamines Screen U Benzodiazepines Scrn U Oth Cocaine Metabols U Cannabinoids Screen Alcohol, Quantitative Blood Type Antibody Screen BBK History Checked 06/29/18 06/29/18 06/29/18 22:33 22:34 22:34 WBC RBC Hgb Hct MCV MCH MCHC RDW Plt Count MPV Neut % (Auto) Lymph % (Auto) [place] % (Auto) Eos % (Auto) Baso % (Auto) Neut # (Auto) Lymph # (Auto) [place] # (Auto) Eos # (Auto) Baso # (Auto) PT 11.1 INR 1.0 APTT 28.0 pO2 29 L VBG pH 7.35 VBG pCO2 42 VBG HCO3 21.8 VBG Total CO2 24.5 VBG O2 Sat (Calc) 62.9 VBG Base Excess -2.4 L VBG Potassium 4.4 Sodium 134.0 136 Chloride 98.0 98 Glucose 373 H Lactate 6.1 H* FiO2 21.0 Crit Value Called To Kaleigh segovia md Crit Value Called By 6075 Crit Value Read Back Y Blood Gas Notified Time 2239 Potassium 4.2 Carbon Dioxide 20 L Anion Gap 22 H BUN 10 Creatinine 0.9 Est GFR ( Amer) > 60 Est GFR (Non-Af Amer) > 60 POC Glucose (mg/dL) Random Glucose 347 H Lactic Acid Calcium 9.7 Phosphorus Magnesium Total Bilirubin 0.6 AST 21 ALT 31 Alkaline Phosphatase 112 Troponin I < 0.0120 Total Protein 7.9 Albumin 4.6 Globulin 3.3 Albumin/Globulin Ratio 1.4 Triglycerides Cholesterol LDL Cholesterol Direct HDL Cholesterol Vitamin B12 Venous Blood Potassium 4.4 Urine Color Urine Clarity Urine pH Ur Specific [place] Urine Protein Urine Glucose (UA) Urine Ketones Urine Blood Urine Nitrate Urine Bilirubin Urine Urobilinogen Ur Leukocyte Esterase Urine RBC (Auto) Urine Microscopic WBC Salicylates Urine Opiates Screen Urine Methadone Screen Acetaminophen Ur Barbiturates Screen Ur Phencyclidine Scrn Ur Amphetamines Screen U Benzodiazepines Scrn U Oth Cocaine Metabols U Cannabinoids Screen Alcohol, Quantitative < 10 Blood Type Antibody Screen BBK History Checked 06/29/18 06/30/18 06/30/18 22:34 05:00 05:00 WBC 15.0 H RBC 4.90 Hgb 14.9 Hct 45.0 MCV 91.8 MCH 30.4 MCHC 33.0 RDW 12.3 Plt Count 205 MPV 10.1 Neut % (Auto) 78.0 H Lymph % (Auto) 15.6 L [place] % (Auto) 6.2 Eos % (Auto) 0.0 Baso % (Auto) 0.2 Neut # (Auto) 11.7 H Lymph # (Auto) 2.3 [place] # (Auto) 0.9 H Eos # (Auto) 0.0 Baso # (Auto) 0.0 PT INR APTT pO2 VBG pH VBG pCO2 VBG HCO3 VBG Total CO2 VBG O2 Sat (Calc) VBG Base Excess VBG Potassium Sodium 138 Chloride 103 Glucose Lactate FiO2 Crit Value Called To Crit Value Called By Crit Value Read Back Blood Gas Notified Time Potassium 4.0 Carbon Dioxide 26 Anion Gap 13 BUN 11 Creatinine 0.8 Est GFR ( Amer) > 60 Est GFR (Non-Af Amer) > 60 POC Glucose (mg/dL) Random Glucose 204 H Lactic Acid Calcium 8.6 Phosphorus Magnesium Total Bilirubin 0.6 AST 19 ALT 33 Alkaline Phosphatase 84 Troponin I Total Protein 6.7 Albumin 3.8 Globulin 2.9 Albumin/Globulin Ratio 1.3 Triglycerides Cholesterol LDL Cholesterol Direct HDL Cholesterol Vitamin B12 Venous Blood Potassium Urine Color Urine Clarity Urine pH Ur Specific [place] Urine Protein Urine Glucose (UA) Urine Ketones Urine Blood Urine Nitrate Urine Bilirubin Urine Urobilinogen Ur Leukocyte Esterase Urine RBC (Auto) Urine Microscopic WBC Salicylates Urine Opiates Screen Urine Methadone Screen Acetaminophen Ur Barbiturates Screen Ur Phencyclidine Scrn Ur Amphetamines Screen U Benzodiazepines Scrn U Oth Cocaine Metabols U Cannabinoids Screen Alcohol, Quantitative Blood Type A POSITIVE Antibody Screen Negative BBK History Checked No verified bt 06/30/18 06/30/18 06/30/18 05:00 05:20 05:27 WBC RBC Hgb Hct MCV MCH MCHC RDW Plt Count MPV Neut % (Auto) Lymph % (Auto) [place] % (Auto) Eos % (Auto) Baso % (Auto) Neut # (Auto) Lymph # (Auto) [place] # (Auto) Eos # (Auto) Baso # (Auto) PT INR APTT pO2 VBG pH VBG pCO2 VBG HCO3 VBG Total CO2 VBG O2 Sat (Calc) VBG Base Excess VBG Potassium Sodium Chloride Glucose Lactate FiO2 Crit Value Called To Crit Value Called By Crit Value Read Back Blood Gas Notified Time Potassium Carbon Dioxide Anion Gap BUN Creatinine Est GFR ( Amer) Est GFR (Non-Af Amer) POC Glucose (mg/dL) 228 H Random Glucose Lactic Acid 1.3 Calcium Phosphorus 3.9 Magnesium 1.7 Total Bilirubin AST ALT Alkaline Phosphatase Troponin I Total Protein Albumin Globulin Albumin/Globulin Ratio Triglycerides 117 Cholesterol 144 LDL Cholesterol Direct 77 HDL Cholesterol 41 Vitamin B12 342 Venous Blood Potassium Urine Color Urine Clarity Urine pH Ur Specific [place] Urine Protein Urine Glucose (UA) Urine Ketones Urine Blood Urine Nitrate Urine Bilirubin Urine Urobilinogen Ur Leukocyte Esterase Urine RBC (Auto) Urine Microscopic WBC Salicylates Urine Opiates Screen Urine Methadone Screen Acetaminophen Ur Barbiturates Screen Ur Phencyclidine Scrn Ur Amphetamines Screen U Benzodiazepines Scrn U Oth Cocaine Metabols U Cannabinoids Screen Alcohol, Quantitative Blood Type Antibody Screen BBK History Checked 06/30/18 06/30/18 06:54 06:54 WBC RBC Hgb Hct MCV MCH MCHC RDW Plt Count MPV Neut % (Auto) Lymph % (Auto) [place] % (Auto) Eos % (Auto) Baso % (Auto) Neut # (Auto) Lymph # (Auto) [place] # (Auto) Eos # (Auto) Baso # (Auto) PT INR APTT pO2 VBG pH VBG pCO2 VBG HCO3 VBG Total CO2 VBG O2 Sat (Calc) VBG Base Excess VBG Potassium Sodium Chloride Glucose Lactate FiO2 Crit Value Called To Crit Value Called By Crit Value Read Back Blood Gas Notified Time Potassium Carbon Dioxide Anion Gap BUN Creatinine Est GFR ( Amer) Est GFR (Non-Af Amer) POC Glucose (mg/dL) Random Glucose Lactic Acid Calcium Phosphorus Magnesium Total Bilirubin AST ALT Alkaline Phosphatase Troponin I Total Protein Albumin Globulin Albumin/Globulin Ratio Triglycerides Cholesterol LDL Cholesterol Direct HDL Cholesterol Vitamin B12 Venous Blood Potassium Urine Color Yellow Urine Clarity Clear Urine pH 5.0 Ur Specific [place] 1.042 H Urine Protein Negative Urine Glucose (UA) >=500 Urine Ketones 20 Urine Blood Negative Urine Nitrate Negative Urine Bilirubin Negative Urine Urobilinogen 0.2-1.0 Ur Leukocyte Esterase Neg Urine RBC (Auto) 1 Urine Microscopic WBC 1 Salicylates Urine Opiates Screen Positive H Urine Methadone Screen Negative Acetaminophen Ur Barbiturates Screen Negative Ur Phencyclidine Scrn Negative Ur Amphetamines Screen Negative U Benzodiazepines Scrn Negative U Oth Cocaine Metabols Negative U Cannabinoids Screen Positive H Alcohol, Quantitative Blood Type Antibody Screen BBK History Checked Assessment & Plan (1) Seizure Assessment and Plan: Imaging reviewed: -CTA Head and Neck (06/29/18) prelim report: unremarkable -CT Head (06/29/18) prelim report: no acute intracranial abnormalities May be 2/2 pt's cocaine use and ETOH use. He is not exhibiting signs of ETOH withdrawal though. -For now we will have an EEG done. -Continue seizure precautions. -Hold AE medications for now. -Brain MRI ordered--f/u with results. -Recommend a psych eval for poss drug detox (if pt agrees; requested by family). -Notify neuro of any acute changes in pt's condition. Blanka Sellers DNP, PRINCIPAL PROCESS ENGINEER D/W Dr. Stockton Status: Acute - Date & Time Date: 06/30/18 Time: 11:57
--- NOTE | 2018-06-30 13:11 | CT ---
Date of service: 06/29/2018 PROCEDURE: CT HEAD WITHOUT CONTRAST. HISTORY: AMS, new seizure, r/o stroke COMPARISON: None available. TECHNIQUE: Axial computed tomography images were obtained through the head/brain without intravenous contrast. Radiation dose: Total exam DLP = 1118.0 mGy-cm. This CT exam was performed using one or more of the following dose reduction techniques: Automated exposure control, adjustment of the mA and/or kV according to patient size, and/or use of iterative reconstruction technique. FINDINGS: HEMORRHAGE: No intracranial hemorrhage. BRAIN: No mass effect or edema. No atrophy or chronic microvascular ischemic changes. VENTRICLES: Unremarkable. No hydrocephalus. CALVARIUM: Unremarkable. PARANASAL SINUSES: Unremarkable as visualized. No significant inflammatory changes. MASTOID AIR CELLS: Unremarkable as visualized. No inflammatory changes. OTHER FINDINGS: The report concurs with the preliminary [facility] report IMPRESSION: No acute intracranial findings
--- NOTE | 2018-06-30 13:15 | CT ---
Date of service: 06/29/2018 PROCEDURE: CT Angiography of the neck with contrast HISTORY: ams COMPARISON: None. TECHNIQUE: Contiguous axial images of the neck were obtained from the level of the skull-base to the superior mediastinum in the arteriographic phase of enhancement. Coronal and sagittal reformats or also generated. IV contrast dose: 90 cc of Visipaque Radiation dose: Total exam DLP = 482.95 mGy-cm. This CT exam was performed using one or more of the following dose reduction techniques: Automated exposure control, adjustment of the mA and/or kV according to patient size, and/or use of iterative reconstruction technique. FINDINGS: RIGHT CAROTID ARTERIES: Common Carotid Artery: Normal. Carotid Bifurcation: Normal. Internal Carotid Artery:Normal. External Carotid Artery (proximal branches): Normal. LEFT CAROTID ARTERIES: Common Carotid Artery: Normal. Carotid Bifurcation: Normal. Internal Carotid Artery:Normal. External Carotid Artery (proximal branches): Normal. VERTEBRAL ARTERIES: Right Vertebral Artery: Normal. Left Vertebral Artery: Normal. OTHER FINDINGS: no aortic atherosclerotic calcification or mural plaque present. IMPRESSION: Normal CT Angiography of the neck. CT Angiography of the Brain. HISTORY: ams COMPARISON: None available. TECHNIQUE: CT angiography of the intracranial arteries was performed. Coronal and sagittal maximum intensity projection reformated images were generated. Radiation dose: Total exam DLP = 482.95 mGy-cm. This CT exam was performed using one or more of the following dose reduction techniques: Automated exposure control, adjustment of the mA and/or kV according to patient size, and/or use of iterative reconstruction technique. FINDINGS: INTERNAL CEREBRAL ARTERIES: Unremarkable. The skull base, petrous, cavernous and supraclinoid segments are bilaterally widely patent. ANTERIOR CEREBRAL ARTERIES: Unremarkable. A1 and A2 segments are widely patent. Smaller distal branches unremarkable, as visualized. MIDDLE CEREBRAL ARTERIES: Unremarkable. M1 and M2 segments are widely patent. Perisylvian branches grossly symmetric. POSTERIOR CIRCULATION: Basilar Artery: Unremarkable. Distal Vertebral Arteries: Unremarkable. Posterior Cerebral Arteries: Unremarkable. Posterior Inferior Cerebellar Arteries: Unremarkable. ANEURYSM/ VASCULAR MALFORMATIONS: None. OTHER FINDINGS: The report concurs with the preliminary [facility] report IMPRESSION: Unremarkable CT Angiography of the Brain.
[2018-06-30 13:17] LABS: PROLACTIN 10.6 ng/mL (3.7-17.9)
[2018-06-30 13:20] LABS: FOLATE 16.9 ng/mL
--- NOTE | 2018-06-30 13:20 | RAD ---
Date of service: 06/30/2018 HISTORY: possible admission COMPARISON: No prior. TECHNIQUE: 1 view obtained. FINDINGS: LUNGS: No consolidation. Inspiration shallow. Possible concomitant granulomatous disease. PLEURA: No significant pleural effusion identified, no pneumothorax apparent. CARDIOVASCULAR: No aortic atherosclerotic calcification present. Probable mild cardiomegaly. No significant appearing pulmonary venous congestion. OSSEOUS STRUCTURES: Diffuse thoraco lumbar spondylosis. Bilateral shoulder arthrosis VISUALIZED UPPER ABDOMEN: Normal. OTHER FINDINGS: None. IMPRESSION: No consolidation. Mild cardiomegaly-chronicity unknown. Other findings as above.
--- NOTE | 2018-06-30 14:11 | CARD ---
APPROVED REPORT Date of service: 06/29/2018 EKG Measurement Heart [id number] <Conclusion> Normal sinus rhythm Left axis deviation Abnormal ECG
[2018-06-30] MEDS ORDERED: Valproate 1,000 MG in Sodium Chloride 0.9% 100 ML IVPB ONE (17:20)
--- NOTE | 2018-06-30 17:38 | PCM.EEG ---
Electroencephalogram Report - Electroencephalogram Report Procedure Date: 06/30/18 Medication: ASA, Depakote, Insulin Interpretation: Technical Information: This was a 16-channel EEG, 1-channel EKG , performed using an [employer] machine., electrodes were applied according to the 10/20 international placement system, impedances were less than 5 K Ohm. Start; 10;52 End; 11;40 Total 48 min RESULTS: Resting wakefulness was characterized by a symmetric posterior dominant rhythm of 8-9 Hz, 30-50 uV, which was reactive to eye opening and closing, with greater amplitudes on the right. Drowsiness (11;15) was associated with slow roving eye movements, slowing and fragmentation of the posterior dominant rhythm, and bilateral 4-7 Hz, 40-70 uV theta activity, sometimes with a shifting predominance. There were 3 seizures captured, 11;01 induced by photic stimulation, seizure onset was right post quadrant at 10 Hz, then build up on the right hemisphere with no spread. Duration 2 min 10 seconds. 11;13; Induced by HV, seizure onset was right post quadrant at 10 Hz, then build up on the right hemisphere with no spread, duration; 3 min. 11;26; Seizure onset was not seen, buildup and progression was right posterior quadrant to right hemisphere. Duration n can not tell, Photic stimulation was performed and there was a seizure induced by it. see above. Throughout the recording, there was evidence of intermittent right post qu adrant l l 3-6 Hz, 30-75 uV slowing. Impression: This is an abnormal EEG study due to the presence of 1- Three seizures were captured, all identical, all CPS (complex partial seizures) of right post quadrant onset. 2- Right post quadrant focal slowing. 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 Findings communicated with Dr Stockton
[2018-06-30] MEDS ORDERED: Ergocalciferol 50,000 Intl Units Cap PO STA (17:44)
[2018-07-01] MEDS: Sodium Chloride 0.9% 1,000 ML IV SCH ×2 (03:53→17:01)
[2018-07-01 07:00] LABS: BASO % 0.3 % (0.0-2.0); HEMOGLOBIN 14.7 g/dL (12.0-18.0); LYMPH # 1.8 K/uL (1.0-4.3); LYMPH % 14.1 % (20.0-40.0); MEAN CELL VOLUME 92.9 fl (80.0-94.0); MEAN CORPUSCULAR HEMOGLOBIN 31.4 pg (27.0-31.0); MEAN CORPUSCULAR HGB CONC 33.8 g/dL (33.0-37.0); MEAN PLATELET VOLUME 10.4 fl (7.2-11.7); MONO # 0.7 K/uL (0.0-0.8); MONO % 5.5 % (0.0-10.0); NEUT # 10.2 K/uL (1.8-7.0); NEUT % 80.1 % (50.0-75.0); RBC 4.68 Mil/uL (4.40-5.90); RED CELL DISTRIBUTION WIDTH 12.1 % (11.5-14.5); WHITE BLOOD COUNT 12.7 K/uL (4.8-10.8)
[2018-07-01 07:14] LABS: BLOOD UREA NITROGEN 13 mg/dl (9-20); CALCIUM 8.8 mg/dL (8.4-10.2); GFR NON-AFRICAN AMERICAN > 60
--- NOTE | 2018-07-01 08:41 | MRI ---
Date of service: 06/30/2018 PROCEDURE: MRI BRAIN WITHOUT CONTRAST HISTORY: new onset seizure COMPARISON: Noncontrast head CT 06/29/2018. TECHNIQUE: Multiplanar, multisequence MR images of the brain were obtained without intravenous contrast enhancement. FINDINGS: HEMORRHAGE: None DWI: There are multiple small areas of restricted diffusion identified at the right occipital lobe and minimally at the right frontal and parietal lobes as well. At least right MCA and [employer] distributions are affected and the pattern suggests embolic etiology, potentially is proximal as the aortic arch or heart. The left cerebral hemisphere spared as well as posterior fossa contents including the brainstem. BRAIN PARENCHYMA: No mass effect or edema. Trace chronic microangiopathy is appreciate the bilateral cerebral hemispheres, age-appropriate. Limited cortical edema mirrors diffusion-weighted imaging abnormalities. VENTRICLES: Unremarkable. No hydrocephalus. CRANIUM: Unremarkable. ORBITS: Grossly unremarkable. PARANASAL SINUSES/MASTOIDS: Limited right mastoid effusions noted as well as small cysts or polyps bilateral maxillary sinuses. VASCULAR SYSTEM: Skull base flow voids intact. OTHER FINDINGS: None. 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 Embolic etiology favored, potentially as proximal as the heart or aortic arch given multiple intracranial arterial distributions affected. No significant mass effect. No definitive intracranial hemorrhage identified. Minimal age related neuro degenerative findings. Concordant preliminary report from [facility], 6:31 p.m..
[2018-07-01] MEDS: Valproate 500 MG in Sodium Chloride 0.9% 100 ML IVPB SCH ×2 (08:52→20:51)
[2018-07-01] MEDS: Insulin Lispro (humaLOG) 100 Units/ml Inj SC SCH ×4 (08:52→22:32)
[2018-07-01] MEDS: Pantoprazole 40 mg EC Tab PO SCH (08:55)
[2018-07-01] MEDS ORDERED: levETIRAcetam 1,500 MG in Sodium Chloride 0.9% 100 ML IVPB ONE (11:19)
--- NOTE | 2018-07-01 11:23 | CP.PCM.PN ---
Subjective - Date & Time of Evaluation Date of Evaluation: 07/01/18 Time of Evaluation: 11:00 - Subjective Subjective: Neuro Follow-Up Note: Mr. Nikolai Lerner was evaluated this morning at bedside. Spouse also present. Pt states that he had a right sided h/a that was throbbing and approx 4/10 earlier this morning; no h/a since then. He also denies blurred or double vision today. Spouse verbalizes concerns to me that she suspects that the pt may not be telling the healthcare providers how he is really feeling physically. She states that his eyes were "going back and forth this morning." Primary RN also verbalized to me that the pt had nystagmus today, which was not present yesterday when I saw him. He denies to me difficulty with speech, dizziness, chest pain, palpitations, sob, cough, abd pain, n/v/d, paresthesias, fever/chills. Please note, at the end of my neuro exam, the pt had a complex partial seizure witnessed by me. He suddenly stated that he had a right sided h/a then became nonverbal, stopped following commands, lost eye contact, appeared unaware of surroundings; left arm and left leg became rigid. This episode lasted approx 15-20 seconds. Immediately after, the pt regained normal consciousness; began following commands as normal; knew he was in the hospital, knew who I was, knew who his spouse was; was unsure about the month and year. H/a also resolved immediately after this episode. My documented neuro exam is the what the pt exhibited to me before this episode occurred. Objective - Vital Signs/Intake and Output Vital Signs (last 24 hours): Temp Pulse Resp BP Pulse Ox 98.3 F 76 20 133/76 100 07/01/18 07:56 07/01/18 07:56 07/01/18 07:56 07/01/18 07:56 07/01/18 07:56 - Medications Medications: Current Medications Acetaminophen (Tylenol 325mg Tab) 650 mg PO Q6 PRN PRN Reason: Headache Last Admin: 07/01/18 03:47 Dose: 650 mg Aspirin (Ecotrin) 325 mg PO DAILY [facility] Last Admin: 06/29/18 23:59 Dose: 325 mg Atorvastatin Calcium (Lipitor) 40 mg PO DAILY [facility] Last Admin: 07/01/18 08:54 Dose: 40 mg Clopidogrel Bisulfate (Plavix) 75 mg PO DAILY [facility] Last Admin: 07/01/18 08:55 Dose: 75 mg Dextrose (Dextrose 50% Inj) 0 ml IV STAT PRN; Protocol PRN Reason: Hypoglycemia Protocol Dextrose (Glutose 15) 0 gm PO ONCE PRN; Protocol PRN Reason: Hypoglycemia Protocol Glucagon (Glucagen Diagnostic Kit) 0 mg IM STAT PRN; Protocol PRN Reason: Hypoglycemia Protocol Sodium Chloride (Sodium Chloride 0.9%) 1,000 mls @ 100 mls/hr IV .Q10H [facility] Last Admin: 06/30/18 13:10 Dose: 100 mls/hr Valproate Sodium 500 mg/ (Sodium Chloride) 105 mls @ 100 mls/hr IVPB Q12 [facility] Last Admin: 07/01/18 08:52 Dose: 100 mls/hr Sodium Chloride (Sodium Chloride 0.9%) 1,000 mls @ 125 mls/hr IV .Q8H [facility] Stop: 07/01/18 19:06 Last Admin: 07/01/18 03:53 Dose: 125 mls/hr Levetiracetam 1,500 mg/ Sodium (Chloride) 115 mls @ 210 mls/hr IVPB ONCE ONE Stop: 07/01/18 11:51 Ibuprofen (Motrin Tab) 400 mg PO Q6 PRN PRN Reason: Pain, moderate (4-7) Insulin Human Lispro (Humalog) 0 units SC ACHS [facility]; Protocol Last Admin: 07/01/18 08:52 Dose: 2 units Ketorolac Tromethamine (Toradol) 15 mg IVP Q6 PRN PRN Reason: Pain, severe (8-10) Last Admin: 06/30/18 13:07 Dose: 15 mg Lorazepam (Ativan) 2 mg IVP Q6 PRN PRN Reason: Seizure activity Last Admin: 07/01/18 06:03 Dose: 2 mg Lorazepam (Ativan) 0.5 mg IVP Q6H PRN PRN Reason: Agitation Ondansetron HCl (Zofran Inj) 4 mg IVP Q6 PRN PRN Reason: Nausea/Vomiting Pantoprazole Sodium (Protonix Ec Tab) 40 mg PO DAILY [facility] Last Admin: 07/01/18 08:55 Dose: 40 mg - Labs Labs: 07/01/18 04:30 07/01/18 04:30 PT 11.1 Seconds (9.8-13.1) 06/29/18 22:34 INR 1.0 06/29/18 22:34 APTT 28.0 Seconds (25.6-37.1) 06/29/18 22:34 - Constitutional Appears: Non-toxic, No Acute Distress - Head Exam Head Exam: ATRAUMATIC, NORMAL INSPECTION, NORMOCEPHALIC - Eye Exam Eye Exam: EOMI, Nystagmus, PERRL. absent: Normal appearance Pupil Exam: NORMAL ACCOMODATION, PERRL - ENT Exam ENT Exam: Mucous Membranes Moist - Neck Exam Neck Exam: Full ROM, Normal Inspection - Respiratory Exam Respiratory Exam: NORMAL BREATHING PATTERN - Cardiovascular Exam Cardiovascular Exam: REGULAR RHYTHM - Extremities Exam Extremities Exam: Full ROM. absent: Calf Tenderness, Pedal Edema - Back Exam Back Exam: Full ROM - Neurological Exam Neurological Exam: Alert, Awake, CN II-XII Intact, Reflexes Normal. absent: Oriented x3 (cannot tell me what year or month it is) Neuro motor strength exam: Left Upper Extremity: 5 (seafood specialist 5/5), Right Upper Extremity: 5 (seafood specialist 5/5), Left Lower Extremity: 5 (plantar flexion 5/5), Right Lower Extremity: 5 (plantar flexion 5/5) Additional comments: Speech clear, fluid No facial asymmetry AAO to place and person, not to time FROM to all extremities without weakness No dysmetria or ataxia No tremors or abnormal movements. Gait not assessed. NIHSS 0 - Psychiatric Exam Psychiatric exam: Normal Affect, Normal Mood - Skin Skin Exam: Dry, Intact, Normal Color, Warm Assessment and Plan (1) Seizure Assessment & Plan: Imaging reviewed: -MRI Brain (06/30/18): Multiple small acute or subacute infarcts affect right occipital greater than right frontal and parietal lobes. Embolic etiology favored, potentially as proximal as the heart or aortic arch given multiple intracranial arterial distributions affected. No significant mass effect. No definitive intracranial hemorrhage identified. Minimal age related neuro degenerative findings. -CTA Head and Neck (06/29/18) prelim report: unremarkable -CT Head (06/29/18) prelim report: no acute intracranial abnormalities -EEG (06/30/18): This is an abnormal EEG study due to the presence of 1-Three seizures were captured, all identical, all CPS (complex partial seizures) of right post quadrant onset. 2- Right post quadrant focal slowing. 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 -Load with Keppra 1,500 mg IV x1 dose now. -Continue Valproate 500 mg IV Q12 hours. -Check Valproic Acid level--f/u with results. -Continue seizure precautions. -Notify neuro of any acute changes in pt's condition. Status: Acute (2) CVA (cerebral vascular accident) Assessment & Plan: Imaging reviewed: -MRI Brain (06/30/18): Multiple small acute or subacute infarcts affect right occipital greater than right frontal and parietal lobes. Embolic etiology favored, potentially as proximal as the heart or aortic arch given multiple intracranial arterial distributions affected. No significant mass effect. No definitive intracranial hemorrhage identified. Minimal age related neuro degenerative findings. -CTA Head and Neck (06/29/18) prelim report: unremarkable -CT Head (06/29/18) prelim report: no acute intracranial abnormalities -EEG (06/30/18): This is an abnormal EEG study due to the presence of 1-Three seizures were captured, all identical, all CPS (complex partial seizures) of right post quadrant onset. 2- Right post quadrant focal slowing. 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 -Continue PT as tolerated. -OT and ST ordered. -Continue ASA, Plavix, Statin. -Notify neuro of any acute changes in pt's condition. Blanka Sellers DNP, TEST DESIGN ENGINEER d/w Dr. Stockton Status: Acute NIHSS Stroke Scale - Date/Time Evaluation Performed Date Performed: 07/01/18 Time Performed: 11:00 When Was NIHSS Performed: Re-evaluation (s/s onset 06/29/18 at approx 8pm) - How Severe is the Stroke Level of Consciousness: 0=Alert (arousable to minor stimuli) LOC to Questions: 0=Both comments correct (month and age) LOC to commands: 0=Obeys both correctly (diffcult to evaluate rest of exam because patient is not following commands. However, he was seen moving all extremities) Best Gaze: 0=Normal (horizontal partial gaze palsy that can be overcome) Visual: 0=No visual loss Facial: 0=Normal Motor Arm - Left: 0=No drift Motor Arm - Right: 0=No drift Motor Leg - Left: 0=No drift Motor Leg - Right: 0=No drift Limb Ataxia: 0=Absent Sensory: 0=Normal Best Language: 0=No aphasia Dysarthia: 0=Normal articulation Extinction & Inattention (Neglect): 0=Normal, no object Score: 0
--- NOTE | 2018-07-01 13:29 | CP.PCM.PN ---
Subjective - Date & Time of Evaluation Date of Evaluation: 07/01/18 Time of Evaluation: 09:20 - Subjective Subjective: [id number] Patient was seen and examined at bedside with present. stated that patient's continues to have periods of abnormal eye movements. Pt is still complainting of headache, 3/10, but denies any f/c/changes to speech, loss of vision difficulty breathing or left/right sided weakness. Objective - Vital Signs/Intake and Output Vital Signs (last 24 hours): Temp Pulse Resp BP Pulse Ox 98.4 F 68 20 149/78 100 07/01/18 11:53 07/01/18 11:53 07/01/18 11:53 07/01/18 11:53 07/01/18 11:53 - Medications Medications: Current Medications Acetaminophen (Tylenol 325mg Tab) 650 mg PO Q6 PRN PRN Reason: Headache Last Admin: 07/01/18 03:47 Dose: 650 mg Aspirin (Ecotrin) 325 mg PO DAILY [facility] Last Admin: 06/29/18 23:59 Dose: 325 mg Atorvastatin Calcium (Lipitor) 40 mg PO DAILY [facility] Last Admin: 07/01/18 08:54 Dose: 40 mg Clopidogrel Bisulfate (Plavix) 75 mg PO DAILY [facility] Last Admin: 07/01/18 08:55 Dose: 75 mg Dextrose (Dextrose 50% Inj) 0 ml IV STAT PRN; Protocol PRN Reason: Hypoglycemia Protocol Dextrose (Glutose 15) 0 gm PO ONCE PRN; Protocol PRN Reason: Hypoglycemia Protocol Glucagon (Glucagen Diagnostic Kit) 0 mg IM STAT PRN; Protocol PRN Reason: Hypoglycemia Protocol Sodium Chloride (Sodium Chloride 0.9%) 1,000 mls @ 100 mls/hr IV .Q10H [facility] Last Admin: 06/30/18 13:10 Dose: 100 mls/hr Valproate Sodium 500 mg/ (Sodium Chloride) 105 mls @ 100 mls/hr IVPB Q12 [facility] Last Admin: 07/01/18 08:52 Dose: 100 mls/hr Sodium Chloride (Sodium Chloride 0.9%) 1,000 mls @ 125 mls/hr IV .Q8H [facility] Stop: 07/01/18 19:06 Last Admin: 07/01/18 03:53 Dose: 125 mls/hr Ibuprofen (Motrin Tab) 400 mg PO Q6 PRN PRN Reason: Pain, moderate (4-7) Insulin Human Lispro (Humalog) 0 units SC ACHS [facility]; Protocol Last Admin: 07/01/18 12:44 Dose: 3 units Ketorolac Tromethamine (Toradol) 15 mg IVP Q6 PRN PRN Reason: Pain, severe (8-10) Last Admin: 07/01/18 12:24 Dose: 15 mg Lorazepam (Ativan) 2 mg IVP Q6 PRN PRN Reason: Seizure activity Last Admin: 07/01/18 06:03 Dose: 2 mg Lorazepam (Ativan) 0.5 mg IVP Q6H PRN PRN Reason: Agitation Ondansetron HCl (Zofran Inj) 4 mg IVP Q6 PRN PRN Reason: Nausea/Vomiting Pantoprazole Sodium (Protonix Ec Tab) 40 mg PO DAILY [facility] Last Admin: 07/01/18 08:55 Dose: 40 mg - Labs Labs: 07/01/18 04:30 07/01/18 04:30 PT 11.1 Seconds (9.8-13.1) 06/29/18 22:34 INR 1.0 06/29/18 22:34 APTT 28.0 Seconds (25.6-37.1) 06/29/18 22:34 - Head Exam Head Exam: ATRAUMATIC - Eye Exam Additional comments: horizontal nystagmus, pupils reactive to light - ENT Exam ENT Exam: Mucous Membranes Moist - Respiratory Exam Respiratory Exam: Clear to Ausculation Bilateral - Cardiovascular Exam Cardiovascular Exam: REGULAR RHYTHM, +S1, +S2 - GI/Abdominal Exam GI & Abdominal Exam: Soft, Normal Bowel Sounds. absent: Guarding, Rigid, Tenderness - Extremities Exam Extremities Exam: absent: Normal Inspection - Neurological Exam Neurological Exam: Alert, Awake, Oriented x3 Additional comments: Pt able to follow verbal commands; strength & sensation intact b/l upper and lower extremities intact - Psychiatric Exam Psychiatric exam: Normal Mood - Skin Skin Exam: Dry, Intact Assessment and Plan - Assessment and Plan (Free Text) Assessment: 53 y/o male with PMH of HTN and recently diagnosed DM-II admitted to [facility] for further evaluation of new onset seizures. 1. CVA (acute vs subacute) -Neurology recommendations appreciated -MRI: multiple small acute or subacute infarcts affecting rt occiptal> rt frontal & parietal lobes. Embolic etiology favored, potentially as proximal as the heart or aortic arch given multiple intracranial arterial distributions affected. -Unremarkable CTA of brain -Head CT with no acute intracranial pathology -FU echo to r/o Avd vs thrombi; vasospasm possibility as well -C/w aspirin 325mg PO QD -C/w plavix 75mg PO QD -C/w lipitor 40mg PO QD 2. Seizure -EEG showed partial seizure -C/w Valproate 500mg IV BID -FU valproate levels -C/w seizure precautions 3. Headaches, N & V (acute) -C/w tylenol/toradol PO prn pain -C/w zofran 4mg IV prn 4. DMII -A1c: 11.4 -C/w sliding scale -C/w hypoglycemia protocol 5. HTN (chronic) -Vs stable -Cont. to monitor
[2018-07-02 05:25] LABS: BASO # 0.1 K/uL (0.0-0.2); BASO % 0.5 % (0.0-2.0); EOS % 0.2 % (0.0-4.0); HEMOGLOBIN 14.8 g/dL (12.0-18.0); LYMPH # 2.1 K/uL (1.0-4.3); MEAN CELL VOLUME 91.6 fl (80.0-94.0); MEAN CORPUSCULAR HEMOGLOBIN 31.1 pg (27.0-31.0); MEAN CORPUSCULAR HGB CONC 33.9 g/dL (33.0-37.0); MEAN PLATELET VOLUME 10.2 fl (7.2-11.7); MONO # 0.8 K/uL (0.0-0.8); MONO % 7.8 % (0.0-10.0); NEUT # 7.2 K/uL (1.8-7.0); NEUT % 70.5 % (50.0-75.0); NRBC % 0.1 % (0.0-0.0); RBC 4.75 Mil/uL (4.40-5.90); RED CELL DISTRIBUTION WIDTH 12.2 % (11.5-14.5); WHITE BLOOD COUNT 10.2 K/uL (4.8-10.8)
[2018-07-02 05:38] LABS: BLOOD UREA NITROGEN 8 mg/dl (9-20); CALCIUM 8.8 mg/dL (8.4-10.2); GFR NON-AFRICAN AMERICAN > 60
[2018-07-02] MEDS: Insulin Lispro (humaLOG) 100 Units/ml Inj SC SCH ×4 (08:55→22:07)
[2018-07-02] MEDS: Aspirin 325 mg EC Tablets PO SCH (09:05)
[2018-07-02] MEDS: Valproate 500 MG in Sodium Chloride 0.9% 100 ML IVPB SCH (09:07)
[2018-07-02] MEDS: Pantoprazole 40 mg EC Tab PO SCH (09:07)
--- NOTE | 2018-07-02 10:40 | CP.PCM.PN ---
<Lyndsey Santo - Last Filed: 07/02/18 15:03> Subjective - Date & Time of Evaluation Date of Evaluation: 07/02/18 Time of Evaluation: 09:09 - Subjective Subjective: Patient was seen and examined this morning at bedside with . Sister and were also at the bedside. Sister stated that the patient has been behav ing differently since last night, and was unable to recall the number of children he has. During examination of the patient, he was noted to have horizontal nystagmus with lateralization of head and body to the left side, and no longer responded to questions. This occurred intermittently for [address] was ordered which showed no change from most recent findings. Findings were discussed with neuro, pt was loaded with keppra & will receive second dose tonight followed by BID tomorrow. Objective - Vital Signs/Intake and Output Vital Signs (last 24 hours): Temp Pulse Resp BP Pulse Ox 98.1 F 62 18 135/77 95 07/02/18 07:55 07/02/18 07:55 07/02/18 07:55 07/02/18 07:55 07/02/18 07:55 - Medications Medications: Current Medications Acetaminophen (Tylenol 325mg Tab) 650 mg PO Q6 PRN PRN Reason: Headache Last Admin: 07/01/18 03:47 Dose: 650 mg Aspirin (Ecotrin) 325 mg PO DAILY [facility] Last Admin: 07/02/18 09:05 Dose: 325 mg Atorvastatin Calcium (Lipitor) 40 mg PO DAILY [facility] Last Admin: 07/02/18 09:06 Dose: 40 mg Clopidogrel Bisulfate (Plavix) 75 mg PO DAILY [facility] Last Admin: 07/02/18 09:06 Dose: 75 mg Dextrose (Dextrose 50% Inj) 0 ml IV STAT PRN; Protocol PRN Reason: Hypoglycemia Protocol Dextrose (Glutose 15) 0 gm PO ONCE PRN; Protocol PRN Reason: Hypoglycemia Protocol Glucagon (Glucagen Diagnostic Kit) 0 mg IM STAT PRN; Protocol PRN Reason: Hypoglycemia Protocol Sodium Chloride (Sodium Chloride 0.9%) 1,000 mls @ 100 mls/hr IV .Q10H [facility] Last Admin: 06/30/18 13:10 Dose: 100 mls/hr Valproate Sodium 500 mg/ (Sodium Chloride) 105 mls @ 100 mls/hr IVPB Q12 [facility] Last Admin: 07/02/18 09:07 Dose: 100 mls/hr Ibuprofen (Motrin Tab) 400 mg PO Q6 PRN PRN Reason: Pain, moderate (4-7) Insulin Human Lispro (Humalog) 0 units SC ACHS [facility]; Protocol Last Admin: 07/02/18 08:55 Dose: 3 units Ketorolac Tromethamine (Toradol) 15 mg IVP Q6 PRN PRN Reason: Pain, severe (8-10) Last Admin: 07/02/18 03:05 Dose: 15 mg Lorazepam (Ativan) 2 mg IVP Q6 PRN PRN Reason: Seizure activity Last Admin: 07/01/18 06:03 Dose: 2 mg Lorazepam (Ativan) 0.5 mg IVP Q6H PRN PRN Reason: Agitation Ondansetron HCl (Zofran Inj) 4 mg IVP Q6 PRN PRN Reason: Nausea/Vomiting Pantoprazole Sodium (Protonix Ec Tab) 40 mg PO DAILY [facility] Last Admin: 07/02/18 09:07 Dose: 40 mg - Labs Labs: 07/02/18 04:30 07/02/18 04:30 PT 11.1 Seconds (9.8-13.1) 06/29/18 22:34 INR 1.0 06/29/18 22:34 APTT 28.0 Seconds (25.6-37.1) 06/29/18 22:34 - Head Exam Head Exam: ATRAUMATIC - Eye Exam Eye Exam: EOMI - ENT Exam ENT Exam: Mucous Membranes Moist - Respiratory Exam Respiratory Exam: Clear to Ausculation Bilateral - Cardiovascular Exam Cardiovascular Exam: REGULAR RHYTHM, +S1, +S2 - GI/Abdominal Exam GI & Abdominal Exam: Soft, Normal Bowel Sounds. absent: Guarding, Rigid, Tenderness - Neurological Exam Additional comments: horizontal nystagmus with lateralization of head and body to the left side, with intermittent responsiveness to questions; strength intact symmetrically in upper & lower extremities - Skin Skin Exam: Dry Assessment and Plan - Assessment and Plan (Free Text) Assessment: 53 y/o male with PMH of HTN and recently diagnosed DM-II admitted to [facility] for further evaluation of new onset seizures. 1. CVA (acute vs subacute) -Neurology recommendations appreciated -MRI: multiple small acute or subacute infarcts affecting rt occiptal> rt frontal & parietal lobes. Embolic etiology favored, potentially as proximal as the heart or aortic arch given multiple intracranial arterial distributions affected. -Unremarkable CTA of brain -Head CT with no acute intracranial pathology with repeat head CT done today neg for any change from what was previously seen -Echo report still pending to r/o Avd vs thrombi; vasospasm possibility as well -C/w aspirin 325mg PO QD -C/w plavix 75mg PO QD -C/w lipitor 40mg PO QD 2. Seizure -EEG showed partial seizure -C/w Valproate 500mg IV BID -Added Keppra 750mg IV BID to start tonight - Valproate levels 47 ( low) -C/w seizure precautions 3. Headaches, N & V (acute) -C/w tylenol/toradol PO prn pain -C/w zofran 4mg IV prn 4. DMII -A1c: 11.4 -C/w sliding scale -C/w hypoglycemia protocol 5. HTN (chronic) -Vs stable -Cont. to monitor <Eber Andrea D - Last Filed: 07/02/18 17:36> Objective - Vital Signs/Intake and Output Vital Signs (last 24 hours): Temp Pulse Resp BP Pulse Ox 98.3 F 65 20 140/76 98 07/02/18 12:00 07/02/18 17:00 07/02/18 17:00 07/02/18 17:00 07/02/18 17:00 - Medications Medications: Current Medications Acetaminophen (Tylenol 325mg Tab) 650 mg PO Q6 PRN PRN Reason: Headache Last Admin: 07/01/18 03:47 Dose: 650 mg Aspirin (Ecotrin) 325 mg PO DAILY [facility] Last Admin: 07/02/18 09:05 Dose: 325 mg Atorvastatin Calcium (Lipitor) 40 mg PO DAILY [facility] Last Admin: 07/02/18 09:06 Dose: 40 mg Clopidogrel Bisulfate (Plavix) 75 mg PO DAILY [facility] Last Admin: 07/02/18 09:06 Dose: 75 mg Dextrose (Dextrose 50% Inj) 0 ml IV STAT PRN; Protocol PRN Reason: Hypoglycemia Protocol Dextrose (Glutose 15) 0 gm PO ONCE PRN; Protocol PRN Reason: Hypoglycemia Protocol Glucagon (Glucagen Diagnostic Kit) 0 mg IM STAT PRN; Protocol PRN Reason: Hypoglycemia Protocol Sodium Chloride (Sodium Chloride 0.9%) 1,000 mls @ 100 mls/hr IV .Q10H [facility] Last Admin: 07/02/18 11:38 Dose: 100 mls/hr Valproate Sodium 500 mg/ (Sodium Chloride) 105 mls @ 100 mls/hr IVPB Q12 [facility] Last Admin: 07/02/18 09:07 Dose: 100 mls/hr Levetiracetam 750 mg/ Sodium (Chloride) 107.5 mls @ 215 mls/hr IVPB Q12 [facility] Ibuprofen (Motrin Tab) 400 mg PO Q6 PRN PRN Reason: Pain, moderate (4-7) Insulin Human Lispro (Humalog) 0 units SC ACHS [facility]; Protocol Last Admin: 07/02/18 17:14 Dose: 2 units Ketorolac Tromethamine (Toradol) 15 mg IVP Q6 PRN PRN Reason: Pain, severe (8-10) Last Admin: 07/02/18 03:05 Dose: 15 mg Lorazepam (Ativan) 2 mg IVP Q6 PRN PRN Reason: Seizure activity Last Admin: 07/01/18 06:03 Dose: 2 mg Lorazepam (Ativan) 0.5 mg IVP Q6H PRN PRN Reason: Agitation Ondansetron HCl (Zofran Inj) 4 mg IVP Q6 PRN PRN Reason: Nausea/Vomiting Pantoprazole Sodium (Protonix Ec Tab) 40 mg PO DAILY [facility] Last Admin: 07/02/18 09:07 Dose: 40 mg - Labs Labs: 07/02/18 04:30 07/02/18 04:30 PT 11.1 Seconds (9.8-13.1) 06/29/18 22:34 INR 1.0 06/29/18 22:34 APTT 28.0 Seconds (25.6-37.1) 06/29/18 22:34 Attending/Attestation - Attestation I have personally seen and examined this patient.: Yes I have fully participated in the care of the patient.: Yes I have reviewed all pertinent clinical information, including history, physical exam and plan: Yes Notes (Text): 07/02/18 17:34 Patient seen and examined with resident. Case discussed and agreed with assessment. Patient observed by neuro to partial complex seizures. Patient moved to ICU for video EEG monitoring.
[2018-07-02] MEDS ORDERED: levETIRAcetam 1,000 MG in Sodium Chloride 0.9% 100 ML IVPB STA (11:10)
[2018-07-02] MEDS: Sodium Chloride 0.9% 1,000 ML IV SCH (11:38)
--- NOTE | 2018-07-02 11:38 | CP.PCM.PN ---
<Blanka Sellers - Last Filed: 07/02/18 11:51> Subjective - Date & Time of Evaluation Date of Evaluation: 07/02/18 Time of Evaluation: 11:36 - Subjective Subjective: Neuro Follow-Up Note: Mr. Nikolai Lerner was evaluated this morning at bedside. Spouse and sister also present. Pt states that he feels good today; denies any new complaints. However, sister and spouse still have concerns that he is not being truthful to staff about his physical symptoms. Sister admits that since her visit with him yesterday at approx 1830 and again early this morning, he has been having frequent periods of not focusing, not speaking, leaning towards the left; these episodes per sister last a few seconds. Neuro was not notified about these episodes last night or this morning until my discussion with primary team just prior to seeing the pt today. Per medical sales consultant, the pt exhibits bizarre behavior; however, the symptoms stated are consistent with this pt's complex partial seizures. ROS per pt is negative. Similar to my encounter with the pt yesterday, and again after my exam, today the pt exhibited a loss of the ability to follow commands, leaned towards the left side, with left arm moving non-purposefully, nonverbal. This lasted approx 5-7 seconds. Afterwards the pt had no difficulty following commands, became verbal, had no side preference, and had no AMS. He became verbal and exhibited no dysarthria. Objective - Vital Signs/Intake and Output Vital Signs (last 24 hours): Temp Pulse Resp BP Pulse Ox 98.1 F 62 18 135/77 95 07/02/18 07:55 07/02/18 07:55 07/02/18 07:55 07/02/18 07:55 07/02/18 07:55 - Medications Medications: Current Medications Acetaminophen (Tylenol 325mg Tab) 650 mg PO Q6 PRN PRN Reason: Headache Last Admin: 07/01/18 03:47 Dose: 650 mg Aspirin (Ecotrin) 325 mg PO DAILY [facility] Last Admin: 07/02/18 09:05 Dose: 325 mg Atorvastatin Calcium (Lipitor) 40 mg PO DAILY [facility] Last Admin: 07/02/18 09:06 Dose: 40 mg Clopidogrel Bisulfate (Plavix) 75 mg PO DAILY [facility] Last Admin: 07/02/18 09:06 Dose: 75 mg Dextrose (Dextrose 50% Inj) 0 ml IV STAT PRN; Protocol PRN Reason: Hypoglycemia Protocol Dextrose (Glutose 15) 0 gm PO ONCE PRN; Protocol PRN Reason: Hypoglycemia Protocol Glucagon (Glucagen Diagnostic Kit) 0 mg IM STAT PRN; Protocol PRN Reason: Hypoglycemia Protocol Sodium Chloride (Sodium Chloride 0.9%) 1,000 mls @ 100 mls/hr IV .Q10H [facility] Last Admin: 06/30/18 13:10 Dose: 100 mls/hr Valproate Sodium 500 mg/ (Sodium Chloride) 105 mls @ 100 mls/hr IVPB Q12 [facility] Last Admin: 07/02/18 09:07 Dose: 100 mls/hr Levetiracetam 1,000 mg/ Sodium (Chloride) 110 mls @ 210 mls/hr IVPB STAT STA Stop: 07/02/18 11:41 Levetiracetam 750 mg/ Sodium (Chloride) 107.5 mls @ 215 mls/hr IVPB Q12 [facility] Ibuprofen (Motrin Tab) 400 mg PO Q6 PRN PRN Reason: Pain, moderate (4-7) Insulin Human Lispro (Humalog) 0 units SC ACHS [facility]; Protocol Last Admin: 07/02/18 08:55 Dose: 3 units Ketorolac Tromethamine (Toradol) 15 mg IVP Q6 PRN PRN Reason: Pain, severe (8-10) Last Admin: 07/02/18 03:05 Dose: 15 mg Lorazepam (Ativan) 2 mg IVP Q6 PRN PRN Reason: Seizure activity Last Admin: 07/01/18 06:03 Dose: 2 mg Lorazepam (Ativan) 0.5 mg IVP Q6H PRN PRN Reason: Agitation Ondansetron HCl (Zofran Inj) 4 mg IVP Q6 PRN PRN Reason: Nausea/Vomiting Pantoprazole Sodium (Protonix Ec Tab) 40 mg PO DAILY [facility] Last Admin: 07/02/18 09:07 Dose: 40 mg - Labs Labs: 07/02/18 04:30 07/02/18 04:30 PT 11.1 Seconds (9.8-13.1) 06/29/18 22:34 INR 1.0 06/29/18 22:34 APTT 28.0 Seconds (25.6-37.1) 06/29/18 22:34 - Constitutional Appears: Other (during exam pt appears well, in no distress; see HPI for pt appearance after exam.) - Head Exam Head Exam: ATRAUMATIC, NORMAL INSPECTION, NORMOCEPHALIC - Eye Exam Eye Exam: Nystagmus, PERRL. absent: Normal appearance Pupil Exam: NORMAL ACCOMODATION, PERRL Additional comments: has left gaze preference today - ENT Exam ENT Exam: Mucous Membranes Moist - Neck Exam Neck Exam: Full ROM, Normal Inspection - Respiratory Exam Respiratory Exam: NORMAL BREATHING PATTERN - Cardiovascular Exam Cardiovascular Exam: REGULAR RHYTHM - Extremities Exam Extremities Exam: Full ROM. absent: Calf Tenderness, Pedal Edema - Back Exam Back Exam: Full ROM - Neurological Exam Neurological Exam: Alert, Awake, Reflexes Normal. absent: CN II-XII Intact, Oriented x3 Neuro motor strength exam: Left Upper Extremity: 5 (rn cardiovascular icu 5/5), Right Upper Extremity: 5 (rn cardiovascular icu 5/5), Left Lower Extremity: 5, Right Lower Extremity: 5 Additional comments: Speech is clear, fluid Oriented to place, not to time and person Does have left gaze preference today with lamar nystagmus FROM to all extremities No focal sensory deficits No tremors Gait not assessed. - Psychiatric Exam Psychiatric exam: Normal Affect, Normal Mood - Skin Skin Exam: Normal Color Assessment and Plan (1) Seizure Assessment & Plan: Imaging reviewed: -MRI Brain (06/30/18): Multiple small acute or subacute infarcts affect right occipital greater than right frontal and parietal lobes. Embolic etiology favored, potentially as proximal as the heart or aortic arch given multiple intracranial arterial distributions affected. No significant mass effect. No definitive intracranial hemorrhage identified. Minimal age related neuro degenerative findings. -CTA Head and Neck (06/29/18) prelim report: unremarkable -CT Head (06/29/18) prelim report: no acute intracranial abnormalities -EEG (06/30/18): This is an abnormal EEG study due to the presence of 1-Three seizures were captured, all identical, all CPS (complex partial seizures) of right post quadrant onset. 2- Right post quadrant focal slowing. 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 -Load with Keppra 1,000 mg IV x1 dose now, followed by Keppra 750 mg IV Q12 hours (to start tonight at 2100). -Continue Valproate 500 mg IV Q12 hours. -VEEG x24 hours ordered STAT. -Repeat non-contrast CT Head to be done as soon as the loading dose of Keppra is infused. -Valproic Acid level WNL. -Continue seizure precautions. -Notify neuro of any acute changes in pt's condition. -Discussed with primary team. Status: Acute (2) CVA (cerebral vascular accident) Assessment & Plan: Imaging reviewed: -MRI Brain (06/30/18): Multiple small acute or subacute infarcts affect right occipital greater than right frontal and parietal lobes. Embolic etiology favored, potentially as proximal as the heart or aortic arch given multiple intracranial arterial distributions affected. No significant mass effect. No definitive intracranial hemorrhage identified. Minimal age related neuro degenerative findings. -CTA Head and Neck (06/29/18) prelim report: unremarkable -CT Head (06/29/18) prelim report: no acute intracranial abnormalities -EEG (06/30/18): This is an abnormal EEG study due to the presence of 1-Three seizures were captured, all identical, all CPS (complex partial seizures) of right post quadrant onset. 2- Right post quadrant focal slowing. 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 -Repeat non-contrast CT Head ordered for seizures, however, we will also f/u for any possible hemorrhagic conversion of the stroke. -Continue PT as tolerated. -OT and ST ordered yesterday. -Continue ASA, Plavix, Statin. -Notify neuro of any acute changes in pt's condition. Blanka Sellers DNP, DOCUMENT REVIEW ATTORNEY d/w Dr. De Los Santos Status: Acute NIHSS Stroke Scale - Date/Time Evaluation Performed Date Performed: 07/02/18 Time Performed: 11:36 - How Severe is the Stroke Level of Consciousness: 0=Alert LOC to Questions: 1=One correct (knows where he is; does not know year or recog nize family at bedside) LOC to commands: 0=Obeys both correctly Best Gaze: 1=Partial gaze palsy (unclear; pt does have left gaze preference) Visual: 0=No visual loss Facial: 0=Normal Motor Arm - Left: 0=No drift Motor Arm - Right: 0=No drift Motor Leg - Left: 0=No drift Motor Leg - Right: 0=No drift Limb Ataxia: 0=Absent Sensory: 0=Normal Best Language: 0=No aphasia Dysarthia: 0=Normal articulation Extinction & Inattention (Neglect): 0=Normal, no object Score: 2 <Tana De Los Santos - Last Filed: 07/02/18 12:14> Objective - Vital Signs/Intake and Output Vital Signs (last 24 hours): Temp Pulse Resp BP Pulse Ox 98.1 F 62 18 135/77 95 07/02/18 07:55 07/02/18 07:55 07/02/18 07:55 07/02/18 07:55 07/02/18 07:55 - Medications Medications: Current Medications Acetaminophen (Tylenol 325mg Tab) 650 mg PO Q6 PRN PRN Reason: Headache Last Admin: 07/01/18 03:47 Dose: 650 mg Aspirin (Ecotrin) 325 mg PO DAILY [facility] Last Admin: 07/02/18 09:05 Dose: 325 mg Atorvastatin Calcium (Lipitor) 40 mg PO DAILY [facility] Last Admin: 07/02/18 09:06 Dose: 40 mg Clopidogrel Bisulfate (Plavix) 75 mg PO DAILY [facility] Last Admin: 07/02/18 09:06 Dose: 75 mg Dextrose (Dextrose 50% Inj) 0 ml IV STAT PRN; Protocol PRN Reason: Hypoglycemia Protocol Dextrose (Glutose 15) 0 gm PO ONCE PRN; Protocol PRN Reason: Hypoglycemia Protocol Glucagon (Glucagen Diagnostic Kit) 0 mg IM STAT PRN; Protocol PRN Reason: Hypoglycemia Protocol Sodium Chloride (Sodium Chloride 0.9%) 1,000 mls @ 100 mls/hr IV .Q10H [facility] Last Admin: 06/30/18 13:10 Dose: 100 mls/hr Valproate Sodium 500 mg/ (Sodium Chloride) 105 mls @ 100 mls/hr IVPB Q12 [facility] Last Admin: 07/02/18 09:07 Dose: 100 mls/hr Levetiracetam 750 mg/ Sodium (Chloride) 107.5 mls @ 215 mls/hr IVPB Q12 [facility] Ibuprofen (Motrin Tab) 400 mg PO Q6 PRN PRN Reason: Pain, moderate (4-7) Insulin Human Lispro (Humalog) 0 units SC ACHS [facility]; Protocol Last Admin: 07/02/18 08:55 Dose: 3 units Ketorolac Tromethamine (Toradol) 15 mg IVP Q6 PRN PRN Reason: Pain, severe (8-10) Last Admin: 07/02/18 03:05 Dose: 15 mg Lorazepam (Ativan) 2 mg IVP Q6 PRN PRN Reason: Seizure activity Last Admin: 07/01/18 06:03 Dose: 2 mg Lorazepam (Ativan) 0.5 mg IVP Q6H PRN PRN Reason: Agitation Ondansetron HCl (Zofran Inj) 4 mg IVP Q6 PRN PRN Reason: Nausea/Vomiting Pantoprazole Sodium (Protonix Ec Tab) 40 mg PO DAILY [facility] Last Admin: 07/02/18 09:07 Dose: 40 mg - Labs Labs: 07/02/18 04:30 07/02/18 04:30 PT 11.1 Seconds (9.8-13.1) 06/29/18 22:34 INR 1.0 06/29/18 22:34 APTT 28.0 Seconds (25.6-37.1) 06/29/18 22:34 Assessment and Plan - Assessment and Plan (Free Text) Assessment: Agree with above and will add that patient would benefit from VIdeo EEG to rule out complex partial status. Plan; 1. VEEG for 24 hours 2. Continue keppra at 750 mg bid 3. Seizure precautions. Thank you Dr. de los santos Neurology
--- NOTE | 2018-07-02 13:27 | CT ---
The date of service: 07/02/2018 PROCEDURE: CT HEAD WITHOUT CONTRAST. HISTORY: Recent CVA with new onset bizarre behavior COMPARISON: Comparison made with MRI brain 06/30/2018. Comparison also made with prior CT scan and CTA of the brain dated 06/2018 TECHNIQUE: Axial computed tomography images were obtained through the head/brain without intravenous contrast. Radiation dose: Total exam DLP = 0.0 mGy-cm. This CT exam was performed using one or more of the following dose reduction techniques: Automated exposure control, adjustment of the mA and/or kV according to patient size, and/or use of iterative reconstruction technique. FINDINGS: HEMORRHAGE: No acute parenchymal, subarachnoid or extra-axial hemorrhage. BRAIN: Previously noted multiple small acute infarcts scattered about the right cerebral hemisphere are less well seen on this exam compared to prior high-resolution MRI. Mild age-appropriate volume loss. VENTRICLES: No obstructive hydrocephalus. CALVARIUM: No acute calvarial fracture seen. Minimal mucosal thickening seen within a few ethmoid air cells PARANASAL SINUSES: MASTOID AIR CELLS: Unremarkable as visualized. No inflammatory changes. OTHER FINDINGS: None. IMPRESSION: No acute intracranial hemorrhage. Previously noted multiple small acute infarcts scattered throughout the right cerebral hemisphere less well seen on this exam as compared to high-resolution MRI.
--- NOTE | 2018-07-02 15:12 | CARD ---
APPROVED REPORT Date of service: 07/01/2018 EXAM: Two-dimensional and M-mode echocardiogram with Doppler, color Doppler with bubble study. Other Information Quality : GoodRhythm : NSR INDICATION CVA/TIA Echo Enhancing Agent Indication: Rule Out Septal Defect Agent/Amount Used: Agitated Saline 2D DIMENSIONS IVSd1.38 (0.7-1.1cm)LVDd4.10 (3.9-5.9cm) LVOT Diameter2.34 (1.8-2.4cm)PWd1.47 (0.7-1.1cm) IVSs1.64 (0.8-1.2cm)LVDs2.71 (2.5-4.0cm) FS (%) 33.9 %PWs1.72 (0.8-1.2cm) M-Mode DIMENSIONS Left Atrium (MM)4.21 (2.5-4.0cm)IVSd1.32 (0.7-1.1cm) Aortic Root3.32 (2.2-3.7cm)LVDd5.21 (4.0-5.6cm) Aortic Cusp Exc.1.91 (1.5-2.0cm)PWd1.35 (0.7-1.1cm) IVSs1.85 cmFS (%) 45 % LVDs2.88 (2.0-3.8cm)PWs1.82 cm Aortic Valve AoV Peak Yangidow618.9cm/sAoV VTI31.8cmAO Peak GR.10mmHg LVOT Peak Ftzkmtga655.7cm/sLVOT VTI28.72cmAO Mean GR.5mmHg APRIL (VMAX)1.83rx8YKS (VTI)2.12cm2 Mitral Valve MV E Owizkrtu31.3cm/sMV DECEL VNSL545cyER A Xtmvfsng96.2cm/s MV HQZ21daE/A ratio1.2MVA (PHT)3.52cm2 TDI Lateral E' Peak V12.55cm/sMedial E' Peak V10.51cm/sE/Lateral E'5.1 E/Medial E'6.1 LEFT VENTRICLE The left ventricle is normal size. There is borderline to mild concentric left ventricular hypertrophy. The left ventricular systolic function is normal. The estimated ejection fraction is 60-65% No regional wall motion abnormalities noted.. The left ventricular diastolic function is normal. No left ventricle thrombus noted on this study. There is no ventricular septal defect visualized. There is no left ventricular aneurysm. There is no mass noted in the left ventricle. RIGHT VENTRICLE The right ventricle is normal size. There is normal right ventricular wall thickness. The right ventricular systolic function is normal. ATRIA The left atrium is borderline dilated. The right atrium size is normal. The interatrial septum is intact with no evidence for an atrial septal defect. AORTIC VALVE The aortic valve is normal in structure. No aortic regurgitation is present. There is no aortic valvular stenosis. There is no aortic valvular vegetation. MITRAL VALVE The mitral valve is normal in structure. There is no evidence of mitral valve prolapse. There is no mitral valve stenosis. There is no mitral valve regurgitation noted. TRICUSPID VALVE The tricuspid valve is normal in structure. There is no tricuspid valve regurgitation noted. There is no tricuspid valve prolapse or vegetation. There is no tricuspid valve stenosis. PULMONIC VALVE The pulmonary valve is normal in structure. There is no pulmonic valvular regurgitation. There is no pulmonic valvular stenosis. GREAT VESSELS The aortic root is normal in size. The ascending aorta is normal in size. The pulmonary artery is normal. The IVC is normal in size and collapses >50% with inspiration. PERICARDIAL EFFUSION There is no pericardial effusion. There is no pleural effusion. <Conclusion> The estimated ejection fraction is 60-65% The left ventricular diastolic function is normal. The left atrium is borderline dilated. The interatrial septum is intact with no evidence for an atrial septal defect. There is no tricuspid valve regurgitation noted. The IVC is normal in size and collapses >50% with inspiration.
[2018-07-02] MEDS ORDERED: Dextrose 50% SYRINGE Inj (50 ml) IV PRN (20:20)
[2018-07-02] MEDS ORDERED: Glucagon Recombinant 1 mg Inj IM PRN (20:20)
[2018-07-02] MEDS ORDERED: Valproate 500 MG in Sodium Chloride 0.9% 100 ML IVPB SCH (21:00)
[2018-07-03] MEDS: Sodium Chloride 0.9% 1,000 ML IV SCH ×2 (04:19→17:14)
[2018-07-03 06:17] LABS: BASO % 0.5 % (0.0-2.0); EOS % 0.6 % (0.0-4.0); HEMOGLOBIN 14.5 g/dL (12.0-18.0); LYMPH # 2.4 K/uL (1.0-4.3); LYMPH % 31.8 % (20.0-40.0); MEAN CELL VOLUME 91.9 fl (80.0-94.0); MEAN CORPUSCULAR HGB CONC 33.7 g/dL (33.0-37.0); MEAN PLATELET VOLUME 10.1 fl (7.2-11.7); MONO # 0.6 K/uL (0.0-0.8); MONO % 8.3 % (0.0-10.0); NEUT # 4.5 K/uL (1.8-7.0); NEUT % 58.8 % (50.0-75.0); RBC 4.67 Mil/uL (4.40-5.90); RED CELL DISTRIBUTION WIDTH 12.2 % (11.5-14.5); WHITE BLOOD COUNT 7.7 K/uL (4.8-10.8)
[2018-07-03 06:24] LABS: BLOOD UREA NITROGEN 8 mg/dl (9-20); CALCIUM 8.7 mg/dL (8.4-10.2); GFR NON-AFRICAN AMERICAN > 60
[2018-07-03] MEDS ORDERED: levETIRAcetam 1,500 MG in Sodium Chloride 0.9% 100 ML IVPB ONE (09:00)
[2018-07-03] MEDS: Valproate 1,500 MG in Sodium Chloride 0.9% 100 ML IVPB SCH ×2 (09:40→20:51)
[2018-07-03] MEDS: Aspirin 325 mg EC Tablets PO SCH (09:40)
[2018-07-03] MEDS: Insulin Lispro (humaLOG) 100 Units/ml Inj SC SCH ×3 (09:41→16:56)
[2018-07-03] MEDS: Pantoprazole 40 mg EC Tab PO SCH (09:42)
--- NOTE | 2018-07-03 12:12 | CP.PCM.PN ---
<Lyndsey Santo - Last Filed: 07/03/18 13:34> Subjective - Date & Time of Evaluation Date of Evaluation: 07/03/18 Time of Evaluation: 09:04 - Subjective Subjective: Patient was seen and examined this morning with and sister at bedside. Patient asleep with video EEG leads in place. As per nurse patient had another partial seizure episode at about 4am this morning. Ativan was given. Patient continues to have unfocused gaze Objective - Vital Signs/Intake and Output Vital Signs (last 24 hours): Temp Pulse Resp BP Pulse Ox 97.2 F L 62 17 142/93 H 99 07/03/18 08:00 07/03/18 08:00 07/03/18 08:00 07/03/18 08:00 07/03/18 08:00 Intake and Output: 07/03/18 07/03/18 06:59 18:59 Intake Total 1000 Output Total 900 Balance 100 - Medications Medications: Current Medications Acetaminophen (Tylenol 325mg Tab) 650 mg PO Q6 PRN PRN Reason: Headache Aspirin (Ecotrin) 325 mg PO DAILY [facility] Last Admin: 07/03/18 09:40 Dose: 325 mg Atorvastatin Calcium (Lipitor) 40 mg PO HS [facility] Clopidogrel Bisulfate (Plavix) 75 mg PO DAILY [facility] Last Admin: 07/03/18 09:42 Dose: 75 mg Dextrose (Dextrose 50% Inj) 0 ml IV STAT PRN; Protocol PRN Reason: Hypoglycemia Protocol Dextrose (Glutose 15) 0 gm PO ONCE PRN; Protocol PRN Reason: Hypoglycemia Protocol Glucagon (Glucagen Diagnostic Kit) 0 mg IM STAT PRN; Protocol PRN Reason: Hypoglycemia Protocol Levetiracetam 750 mg/ Sodium (Chloride) 107.5 mls @ 215 mls/hr IVPB Q12 [facility] Last Admin: 07/03/18 09:41 Dose: 215 mls/hr Sodium Chloride (Sodium Chloride 0.9%) 1,000 mls @ 100 mls/hr IV .Q10H [facility] Last Admin: 07/03/18 04:19 Dose: 100 mls/hr Valproate Sodium 1,500 mg/ (Sodium Chloride) 115 mls @ 115 mls/hr IVPB Q12 [facility] Last Admin: 07/03/18 09:40 Dose: 115 mls/hr Ibuprofen (Motrin Tab) 400 mg PO Q6 PRN PRN Reason: Pain, moderate (4-7) Insulin Human Lispro (Humalog) 0 units SC ACHS [facility]; Protocol Last Admin: 07/03/18 11:08 Dose: 2 unit Ketorolac Tromethamine (Toradol) 15 mg IVP Q6 PRN PRN Reason: Pain, severe (8-10) Stop: 07/04/18 00:27 Last Admin: 07/02/18 22:12 Dose: 15 mg Lorazepam (Ativan) 2 mg IVP Q6 PRN PRN Reason: Seizure activity Last Admin: 07/03/18 04:18 Dose: 2 mg Lorazepam (Ativan) 0.5 mg IVP Q6H PRN PRN Reason: Agitation Ondansetron HCl (Zofran Inj) 4 mg IVP Q6 PRN PRN Reason: Nausea/Vomiting Pantoprazole Sodium (Protonix Ec Tab) 40 mg PO DAILY [facility] Last Admin: 07/03/18 09:42 Dose: 40 mg - Labs Labs: 07/03/18 04:30 07/03/18 04:30 PT 11.1 Seconds (9.8-13.1) 06/29/18 22:34 INR 1.0 06/29/18 22:34 APTT 28.0 Seconds (25.6-37.1) 06/29/18 22:34 - Constitutional Appears: Non-toxic - ENT Exam ENT Exam: Mucous Membranes Moist - Respiratory Exam Respiratory Exam: Clear to Ausculation Bilateral. absent: Respiratory Distress - Cardiovascular Exam Cardiovascular Exam: REGULAR RHYTHM, +S1, +S2 - GI/Abdominal Exam GI & Abdominal Exam: Soft, Normal Bowel Sounds. absent: Guarding, Rigid, Tenderness - Neurological Exam Neurological Exam: Alert Additional comments: unfocused gaze with strength and sensation intact b/l in upper/lower extremity - Skin Skin Exam: Dry, Intact Assessment and Plan - Assessment and Plan (Free Text) Assessment: 53 y/o male with PMH of HTN and recently diagnosed DM-II admitted to [facility] for further evaluation of new onset seizures. 1. CVA (acute vs subacute) -Neurology recommendations appreciated -MRI: multiple small acute or subacute infarcts affecting rt occiptal> rt frontal & parietal lobes. Embolic etiology favored, potentially as proximal as the heart or aortic arch given multiple intracranial arterial distributions affected. -Unremarkable CTA of brain -Head CT with no acute intracranial pathology with repeat head CT done today neg for any change from what was previously seen -Echo report still pending to r/o Avd vs thrombi; vasospasm possibility as well -C/w aspirin 325mg PO QD -C/w plavix 75mg PO QD -C/w lipitor 40mg PO HS -C/w video EEG 2. Seizure -EEG showed partial seizure -C/w Valproate 500mg IV BID -Added Keppra 750mg IV BID to start tonight - Valproate levels 47 ( low) -C/w seizure precautions 3. Headaches, N & V (acute) -C/w tylenol/toradol PO prn pain -C/w zofran 4mg IV prn 4. DMII -A1c: 11.4 -C/w sliding scale -C/w hypoglycemia protocol 5. HTN (chronic) -Vs stable -Cont. to monitor <Andrea,Eber D - Last Filed: 07/03/18 13:37> Objective - Vital Signs/Intake and Output Vital Signs (last 24 hours): Temp Pulse Resp BP Pulse Ox 97.5 F L 69 17 151/75 H 99 07/03/18 12:00 07/03/18 12:00 07/03/18 12:00 07/03/18 12:00 07/03/18 12:00 Intake and Output: 07/03/18 07/03/18 06:59 18:59 Intake Total 1000 900 Output Total 900 Balance 100 900 - Medications Medications: Current Medications Acetaminophen (Tylenol 325mg Tab) 650 mg PO Q6 PRN PRN Reason: Headache Aspirin (Ecotrin) 325 mg PO DAILY [facility] Last Admin: 07/03/18 09:40 Dose: 325 mg Atorvastatin Calcium (Lipitor) 40 mg PO HS [facility] Clopidogrel Bisulfate (Plavix) 75 mg PO DAILY [facility] Last Admin: 07/03/18 09:42 Dose: 75 mg Dextrose (Dextrose 50% Inj) 0 ml IV STAT PRN; Protocol PRN Reason: Hypoglycemia Protocol Dextrose (Glutose 15) 0 gm PO ONCE PRN; Protocol PRN Reason: Hypoglycemia Protocol Glucagon (Glucagen Diagnostic Kit) 0 mg IM STAT PRN; Protocol PRN Reason: Hypoglycemia Protocol Levetiracetam 750 mg/ Sodium (Chloride) 107.5 mls @ 215 mls/hr IVPB Q12 [facility] Last Admin: 07/03/18 09:41 Dose: 215 mls/hr Sodium Chloride (Sodium Chloride 0.9%) 1,000 mls @ 100 mls/hr IV .Q10H [facility] Last Admin: 07/03/18 04:19 Dose: 100 mls/hr Valproate Sodium 1,500 mg/ (Sodium Chloride) 115 mls @ 115 mls/hr IVPB Q12 [facility] Last Admin: 07/03/18 09:40 Dose: 115 mls/hr Ibuprofen (Motrin Tab) 400 mg PO Q6 PRN PRN Reason: Pain, moderate (4-7) Insulin Human Lispro (Humalog) 0 units SC ACHS [facility]; Protocol Last Admin: 07/03/18 11:08 Dose: 2 unit Ketorolac Tromethamine (Toradol) 15 mg IVP Q6 PRN PRN Reason: Pain, severe (8-10) Stop: 07/04/18 00:27 Last Admin: 07/02/18 22:12 Dose: 15 mg Lorazepam (Ativan) 2 mg IVP Q6 PRN PRN Reason: Seizure activity Last Admin: 07/03/18 04:18 Dose: 2 mg Lorazepam (Ativan) 0.5 mg IVP Q6H PRN PRN Reason: Agitation Ondansetron HCl (Zofran Inj) 4 mg IVP Q6 PRN PRN Reason: Nausea/Vomiting Pantoprazole Sodium (Protonix Ec Tab) 40 mg PO DAILY [facility] Last Admin: 07/03/18 09:42 Dose: 40 mg - Labs Labs: 07/03/18 04:30 07/03/18 04:30 PT 11.1 Seconds (9.8-13.1) 06/29/18 22:34 INR 1.0 06/29/18 22:34 APTT 28.0 Seconds (25.6-37.1) 06/29/18 22:34 Attending/Attestation - Attestation I have personally seen and examined this patient.: Yes I have fully participated in the care of the patient.: Yes I have reviewed all pertinent clinical information, including history, physical exam and plan: Yes Notes (Text): 07/03/18 13:36 Patient seen and examined with resident. Case discussed and agreed with assessment.
[2018-07-03] MEDS ORDERED: Potassium Chloride 20 mEq ER Tab PO ONE (14:00)
[2018-07-03 18:23] VITALS: RESP 18
[2018-07-04] MEDS: Sodium Chloride 0.9% 1,000 ML IV SCH ×2 (05:24→17:11)
[2018-07-04 06:29] LABS: HEMOGLOBIN 14.6 g/dL (12.0-18.0); MEAN CELL VOLUME 91.3 fl (80.0-94.0); MEAN CORPUSCULAR HEMOGLOBIN 31.4 pg (27.0-31.0); MEAN CORPUSCULAR HGB CONC 34.4 g/dL (33.0-37.0); RBC 4.64 Mil/uL (4.40-5.90); RED CELL DISTRIBUTION WIDTH 12.1 % (11.5-14.5); WHITE BLOOD COUNT 8.1 K/uL (4.8-10.8)
[2018-07-04 06:46] LABS: ALB/GLOB RATIO 1.3 (1.0-2.1); ALBUMIN 3.5 g/dL (3.5-5.0); ALT/SGPT 32 U/L (21-72); AST/SGOT 20 U/L (17-59); BLOOD UREA NITROGEN 10 mg/dl (9-20); CALCIUM 8.8 mg/dL (8.4-10.2); GFR NON-AFRICAN AMERICAN > 60
[2018-07-04] MEDS: Insulin Lispro (humaLOG) 100 Units/ml Inj SC SCH ×3 (07:33→17:08)
[2018-07-04] MEDS: Valproate 1,500 MG in Sodium Chloride 0.9% 100 ML IVPB SCH (09:45)
[2018-07-04] MEDS: Aspirin 325 mg EC Tablets PO SCH (09:45)
[2018-07-04] MEDS: Pantoprazole 40 mg EC Tab PO SCH (09:46)
--- NOTE | 2018-07-04 13:02 | CP.PCM.PN ---
Subjective - Date & Time of Evaluation Date of Evaluation: 07/04/18 Time of Evaluation: 11:20 - Subjective Subjective: Patient seen and examined. No ictal activity the last 24 hrs but claimed patient had severe headache earlier. Objective - Vital Signs/Intake and Output Vital Signs (last 24 hours): Temp Pulse Resp BP Pulse Ox 99.4 F 63 18 144/72 99 07/04/18 12:13 07/04/18 12:13 07/04/18 12:13 07/04/18 12:13 07/04/18 12:13 Intake and Output: 07/04/18 07/04/18 06:59 18:59 Intake Total 1450 Output Total 800 Balance 650 - Medications Medications: Current Medications Acetaminophen (Tylenol 325mg Tab) 650 mg PO Q6 PRN PRN Reason: Headache Last Admin: 07/04/18 06:37 Dose: 650 mg Aspirin (Ecotrin) 325 mg PO DAILY [facility] Last Admin: 07/04/18 09:45 Dose: 325 mg Atorvastatin Calcium (Lipitor) 40 mg PO HS [facility] Last Admin: 07/03/18 22:53 Dose: Not Given Clopidogrel Bisulfate (Plavix) 75 mg PO DAILY [facility] Last Admin: 07/04/18 09:46 Dose: 75 mg Dextrose (Dextrose 50% Inj) 0 ml IV STAT PRN; Protocol PRN Reason: Hypoglycemia Protocol Dextrose (Glutose 15) 0 gm PO ONCE PRN; Protocol PRN Reason: Hypoglycemia Protocol Glucagon (Glucagen Diagnostic Kit) 0 mg IM STAT PRN; Protocol PRN Reason: Hypoglycemia Protocol Levetiracetam 750 mg/ Sodium (Chloride) 107.5 mls @ 215 mls/hr IVPB Q12 [facility] Last Admin: 07/04/18 09:46 Dose: 215 mls/hr Sodium Chloride (Sodium Chloride 0.9%) 1,000 mls @ 100 mls/hr IV .Q10H [facility] Last Admin: 07/04/18 05:24 Dose: 100 mls/hr Valproate Sodium 1,500 mg/ (Sodium Chloride) 115 mls @ 115 mls/hr IVPB Q12 [facility] Last Admin: 07/04/18 09:45 Dose: 115 mls/hr Ibuprofen (Motrin Tab) 400 mg PO Q6 PRN PRN Reason: Pain, moderate (4-7) Last Admin: 07/03/18 18:59 Dose: 400 mg Insulin Human Lispro (Humalog) 0 units SC ACHS SHANTI; Protocol Last Admin: 07/04/18 07:33 Dose: Not Given Ketorolac Tromethamine (Toradol) 15 mg IVP Q6 PRN PRN Reason: Pain, severe (8-10) Last Admin: 07/04/18 09:47 Dose: 15 mg Lorazepam (Ativan) 2 mg IVP Q6 PRN PRN Reason: Seizure activity Last Admin: 07/03/18 04:18 Dose: 2 mg Lorazepam (Ativan) 0.5 mg IVP Q6H PRN PRN Reason: Agitation Ondansetron HCl (Zofran Inj) 4 mg IVP Q6 PRN PRN Reason: Nausea/Vomiting Pantoprazole Sodium (Protonix Ec Tab) 40 mg PO DAILY [facility] Last Admin: 07/04/18 09:46 Dose: 40 mg - Labs Labs: 07/04/18 04:30 07/04/18 04:30 PT 11.1 Seconds (9.8-13.1) 06/29/18 22:34 INR 1.0 06/29/18 22:34 APTT 28.0 Seconds (25.6-37.1) 06/29/18 22:34 - Constitutional Appears: No Acute Distress - Head Exam Head Exam: ATRAUMATIC - Eye Exam Eye Exam: absent: Scleral icterus - ENT Exam ENT Exam: Mucous Membranes Moist - Neck Exam Neck Exam: absent: Meningismus - Respiratory Exam Respiratory Exam: absent: Rales, Rhonchi, Wheezes, Respiratory Distress - Cardiovascular Exam Cardiovascular Exam: REGULAR RHYTHM, +S1, +S2 - GI/Abdominal Exam GI & Abdominal Exam: Soft. absent: Tenderness - Rectal Exam Rectal Exam: Deferred - Neurological Exam Neurological Exam: Alert, Oriented x3 - Psychiatric Exam Psychiatric exam: Normal Affect - Skin Skin Exam: Dry, Intact Assessment and Plan - Assessment and Plan (Free Text) Assessment: 53 yo male with history of HTN and DM2 admitted because of new onset seizures. CT scan of the head showed subacute infarct on right occipital area. 1. CVA (acute vs subacute)/Seizure EEG showed partial seizure no further ictal activity since yesterday continue Keppra 750mg PO q 12hrs continue Valproic Acid 500mg PO q 12hrs Dr Stockton on neuro consult 2. DMII BS controlled accuchek ACHS with Lispro coverage 3. HTN BP stable continue monitoring BP low salt diet
--- NOTE | 2018-07-04 13:51 | CP.PCM.PN ---
Subjective - Date & Time of Evaluation Date of Evaluation: 07/03/18 Time of Evaluation: 12:30 - Subjective Subjective: Mr. Menchaca is a 53 yr old male who has stroke, and now localization related epilepsy, who was monitored for seizures, that were complex partial epilepsy. His EEG showed complex partial epilepsy and is now normal, and is seizure free. ROS: negative for any complaints. On exam: AAOX3. PERRL. CN 2-12 normal. EOMI. Motor: strength: 5/5 ul,ll. Sensory: intact ft, pin, pos ition sense. Cerebellar: no dysmetria Gait: normal. no ataxia. Objective - Vital Signs/Intake and Output Vital Signs (last 24 hours): Temp Pulse Resp BP Pulse Ox 99.4 F 63 18 144/72 99 07/04/18 12:13 07/04/18 12:13 07/04/18 12:13 07/04/18 12:13 07/04/18 12:13 Intake and Output: 07/04/18 07/04/18 06:59 18:59 Intake Total 1450 Output Total 800 Balance 650 - Medications Medications: Current Medications Acetaminophen (Tylenol 325mg Tab) 650 mg PO Q6 PRN PRN Reason: Headache Last Admin: 07/04/18 06:37 Dose: 650 mg Aspirin (Ecotrin) 325 mg PO DAILY [facility] Last Admin: 07/04/18 09:45 Dose: 325 mg Atorvastatin Calcium (Lipitor) 40 mg PO HS [facility] Last Admin: 07/03/18 22:53 Dose: Not Given Clopidogrel Bisulfate (Plavix) 75 mg PO DAILY [facility] Last Admin: 07/04/18 09:46 Dose: 75 mg Dextrose (Dextrose 50% Inj) 0 ml IV STAT PRN; Protocol PRN Reason: Hypoglycemia Protocol Dextrose (Glutose 15) 0 gm PO ONCE PRN; Protocol PRN Reason: Hypoglycemia Protocol Glucagon (Glucagen Diagnostic Kit) 0 mg IM STAT PRN; Protocol PRN Reason: Hypoglycemia Protocol Levetiracetam 750 mg/ Sodium (Chloride) 107.5 mls @ 215 mls/hr IVPB Q12 [facility] Last Admin: 07/04/18 09:46 Dose: 215 mls/hr Sodium Chloride (Sodium Chloride 0.9%) 1,000 mls @ 100 mls/hr IV .Q10H [facility] Last Admin: 07/04/18 05:24 Dose: 100 mls/hr Valproate Sodium 1,500 mg/ (Sodium Chloride) 115 mls @ 115 mls/hr IVPB Q12 [facility] Last Admin: 07/04/18 09:45 Dose: 115 mls/hr Ibuprofen (Motrin Tab) 400 mg PO Q6 PRN PRN Reason: Pain, moderate (4-7) Last Admin: 07/03/18 18:59 Dose: 400 mg Insulin Human Lispro (Humalog) 0 units SC ACHS [facility]; Protocol Last Admin: 07/04/18 12:45 Dose: Not Given Ketorolac Tromethamine (Toradol) 15 mg IVP Q6 PRN PRN Reason: Pain, severe (8-10) Last Admin: 07/04/18 09:47 Dose: 15 mg Lorazepam (Ativan) 2 mg IVP Q6 PRN PRN Reason: Seizure activity Last Admin: 07/03/18 04:18 Dose: 2 mg Lorazepam (Ativan) 0.5 mg IVP Q6H PRN PRN Reason: Agitation Ondansetron HCl (Zofran Inj) 4 mg IVP Q6 PRN PRN Reason: Nausea/Vomiting Pantoprazole Sodium (Protonix Ec Tab) 40 mg PO DAILY [facility] Last Admin: 07/04/18 09:46 Dose: 40 mg - Labs Labs: 07/04/18 04:30 07/04/18 04:30 PT 11.1 Seconds (9.8-13.1) 06/29/18 22:34 INR 1.0 06/29/18 22:34 APTT 28.0 Seconds (25.6-37.1) 06/29/18 22:34 Assessment and Plan - Assessment and Plan (Free Text) Assessment: 53 yr old male with complex partial epilepsy now much improved on keppra and dilantin. Plan; 1. Contineu keppra and dilantin 2. discontinue veeg 3. transfer to regular floor. DR. de los santos Neurology
[2018-07-04 16:16] VITALS: BP 154/78; PULSE 68; TEMP 98.9
[2018-07-04 16:46] VITALS: O2SAT 98
--- NOTE | 2018-07-04 18:10 | CP.PCM.DIS ---
Provider - Provider Date of Admission: 06/29/18 23:04 Attending physician: Ru Khan MD Consults: 06/30/18 00:24 Neurology Consult Stat Comment: Consulting Provider: Angelito Stockton Consulting Physician: Angelito Stockton Reason for Consult: New onset Seizure Time Spent in preparation of Discharge (in minutes): 25 Diagnosis - Discharge Diagnosis (1) CVA (cerebral vascular accident) Status: Acute Comment: seizure activity controlled with 750mg Keppra PO BID and 500mg Valproic Acid PO BID. to follow up with Dr Lee in 2 weeks Hospital Course - Lab Results Lab Results: Most Recent Lab Values WBC 8.1 K/uL (4.8-10.8) 07/04/18 04:30 RBC 4.64 Mil/uL (4.40-5.90) 07/04/18 04:30 Hgb 14.6 g/dL (12.0-18.0) 07/04/18 04:30 Hct 42.3 % (35.0-51.0) 07/04/18 04:30 MCV 91.3 fl (80.0-94.0) 07/04/18 04:30 MCH 31.4 pg (27.0-31.0) H 07/04/18 04:30 MCHC 34.4 g/dL (33.0-37.0) 07/04/18 04:30 RDW 12.1 % (11.5-14.5) 07/04/18 04:30 Plt Count 194 K/uL (130-400) 07/04/18 04:30 MPV 10.1 fl (7.2-11.7) 07/03/18 04:30 Neut % (Auto) 58.8 % (50.0-75.0) 07/03/18 04:30 Lymph % (Auto) 31.8 % (20.0-40.0) 07/03/18 04:30 [place] % (Auto) 8.3 % (0.0-10.0) 07/03/18 04:30 Eos % (Auto) 0.6 % (0.0-4.0) 07/03/18 04:30 Baso % (Auto) 0.5 % (0.0-2.0) 07/03/18 04:30 Neut # (Auto) 4.5 K/uL (1.8-7.0) 07/03/18 04:30 Lymph # (Auto) 2.4 K/uL (1.0-4.3) 07/03/18 04:30 Harney # (Auto) 0.6 K/uL (0.0-0.8) 07/03/18 04:30 Eos # (Auto) 0.0 K/uL (0.0-0.7) 07/03/18 04:30 Baso # (Auto) 0.0 K/uL (0.0-0.2) 07/03/18 04:30 PT 11.1 Seconds (9.8-13.1) 06/29/18 22:34 INR 1.0 06/29/18 22:34 APTT 28.0 Seconds (25.6-37.1) 06/29/18 22:34 pO2 29 mm/Hg (30-55) L 06/29/18 22:33 VBG pH 7.35 (7.32-7.43) 06/29/18 22:33 VBG pCO2 42 mmHg (40-60) 06/29/18 22:33 VBG HCO3 21.8 mmol/L 06/29/18 22:33 VBG Total CO2 24.5 mmol/L (22-28) 06/29/18 22:33 VBG O2 Sat (Calc) 62.9 % (40-65) 06/29/18 22:33 VBG Base Excess -2.4 mmol/L (0.0-2.0) L 06/29/18 22:33 VBG Potassium 4.4 mmol/L (3.6-5.2) 06/29/18 22:33 Sodium 134.0 mmol/L (132-148) 06/29/18 22:33 Chloride 98.0 mmol/L (98-107) 06/29/18 22:33 Glucose 373 mg/dL (75-110) H 06/29/18 22:33 Lactate 6.1 mmol/L (0.7-2.1) H* 06/29/18 22:33 FiO2 21.0 % 06/29/18 22:33 Crit Value Called To Kaleigh segovia md 06/29/18 22:33 Crit Value Called By [id number] 06/29/18 22:33 Crit Value Read Back Y 06/29/18 22:33 Blood Gas Notified Time 223806/29/18 22:33 Sodium 139 mmol/l (132-148) 07/04/18 04:30 Potassium 3.6 MMOL/L (3.6-5.0) 07/04/18 04:30 Chloride 104 mmol/L (98-107) 07/04/18 04:30 Carbon Dioxide 28 mmol/L (22-30) 07/04/18 04:30 Anion Gap 11 (10-20) 07/04/18 04:30 BUN 10 mg/dl (9-20) 07/04/18 04:30 Creatinine 0.8 mg/dl (0.8-1.5) 07/04/18 04:30 Est GFR ( Amer) > 60 07/04/18 04:30 Est GFR (Non-Af Amer) > 60 07/04/18 04:30 POC Glucose (mg/dL) 196 mg/dL (65-110) H 07/04/18 16:42 Random Glucose 116 mg/dL (75-110) H 07/04/18 04:30 Hemoglobin A1c 11.4 % (4.2-6.5) H 06/30/18 08:54 Lactic Acid 1.3 mmol/L (0.7-2.1) 06/30/18 05:00 Calcium 8.8 mg/dL (8.4-10.2) 07/04/18 04:30 Phosphorus 3.9 mg/dl (2.5-4.5) 06/30/18 05:20 Magnesium 1.7 MG/DL (1.6-2.3) 06/30/18 05:20 Total Bilirubin 0.6 mg/dl (0.2-1.3) 07/04/18 04:30 AST 20 U/L (17-59) 07/04/18 04:30 ALT 32 U/L (21-72) 07/04/18 04:30 Alkaline Phosphatase 68 U/L (38-126) 07/04/18 04:30 Troponin I < 0.0120 ng/mL (0.00-0.120) 06/29/18 22:34 C-Reactive Protein 8.40 mg/L (0.0-9.9) 06/30/18 05:00 Total Protein 6.2 G/DL (6.3-8.2) L 07/04/18 04:30 Albumin 3.5 g/dL (3.5-5.0) 07/04/18 04:30 Globulin 2.7 gm/dL (2.2-3.9) 07/04/18 04:30 Albumin/Globulin Ratio 1.3 (1.0-2.1) 07/04/18 04:30 Triglycerides 117 mg/DL (0-149) 06/30/18 05:20 Cholesterol 144 mg/dL (0-199) 06/30/18 05:20 LDL Cholesterol Direct 77 mg/dL (0-129) 06/30/18 05:20 HDL Cholesterol 41 MG/DL (30-70) 06/30/18 05:20 Vitamin B12 342 pg/mL (239-931) 06/30/18 05:20 25-OH Vitamin D Total 16.0 NG/ML (30.0-100.0) L 06/30/18 09:50 Folate 16.9 ng/mL 06/30/18 05:20 Prolactin 10.6 ng/mL (3.7-17.9) 06/30/18 05:00 Venous Blood Potassium 4.4 mmol/L (3.6-5.2) 06/29/18 22:33 Urine Color Yellow (YELLOW) 06/30/18 06:54 Urine Clarity Clear (Clear) 06/30/18 06:54 Urine pH 5.0 (5.0-8.0) 06/30/18 06:54 Ur Specific [place] 1.042 (1.003-1.030) H 06/30/18 06:54 Urine Protein Negative mg/dL (NEGATIVE) 06/30/18 06:54 Urine Glucose (UA) >=500 mg/dL (NEGATIVE) 06/30/18 06:54 Urine Ketones 20 mg/dL (NEGATIVE) 06/30/18 06:54 Urine Blood Negative (NEGATIVE) 06/30/18 06:54 Urine Nitrate Negative (NEGATIVE) 06/30/18 06:54 Urine Bilirubin Negative (NEGATIVE) 06/30/18 06:54 Urine Urobilinogen 0.2-1.0 mg/dL (0.2-1.0) 06/30/18 06:54 Ur Leukocyte Esterase Neg Ernie/uL (Negative) 06/30/18 06:54 Urine RBC (Auto) 1 /hpf (0-3) 06/30/18 06:54 Urine Microscopic WBC 1 /hpf (0-5) 06/30/18 06:54 Salicylates < 1.0 mg/dl 06/29/18 22:31 Urine Opiates Screen Positive (NEGATIVE) H 06/30/18 06:54 Urine Methadone Screen Negative (NEGATIVE) 06/30/18 06:54 Acetaminophen < 10.0 ug/ml (10.0-30.0) L 06/29/18 22:31 Ur Barbiturates Screen Negative (NEGATIVE) 06/30/18 06:54 Valproic Acid 47.0 ug/mL (50.0-100.0) L 07/01/18 16:30 Ur Phencyclidine Scrn Negative (NEGATIVE) 06/30/18 06:54 Ur Amphetamines Screen Negative (NEGATIVE) 06/30/18 06:54 U Benzodiazepines Scrn Negative (NEGATIVE) 06/30/18 06:54 U Oth Cocaine Metabols Negative (NEGATIVE) 06/30/18 06:54 U Cannabinoids Screen Positive (NEGATIVE) H 06/30/18 06:54 Alcohol, Quantitative < 10 mg/dl (0-10) 06/29/18 22:34 Blood Type A POSITIVE 06/29/18 22:34 Blood Type Confirm A POSITIVE 07/01/18 08:45 Antibody Screen Negative 06/29/18 22:34 BBK History Checked No verified bt 06/29/18 22:34 - Hospital Course Hospital Course: 53 yo male with history of HTN and DM2 admitted because of new onset seizures. CT scan of the head showed subacute infarct on right occipital area. Patient had complex partial seizure confirmed via video EEG and controlled with Keppra and Valproic acid. Patient was discharged in stable condition after he was seizure free for more than 24 hrs. Patient will continue taking Keppra and Valproic acid and will follow up with Dr Lee in 2 weeks. Discharge Exam - Head Exam Head Exam: ATRAUMATIC, NORMAL INSPECTION, NORMOCEPHALIC - Eye Exam Eye Exam: absent: Scleral icterus - ENT Exam ENT Exam: Mucous Membranes Moist - Respiratory Exam Respiratory Exam: absent: Rales, Rhonchi, Wheezes, Respiratory Distress - Cardiovascular Exam Cardiovascular Exam: REGULAR RHYTHM, +S1, +S2 - GI/Abdominal Exam GI & Abdominal Exam: Soft. absent: Tenderness - Rectal Exam Rectal Exam: Deferred - Neurological Exam Neurological exam: Alert, Oriented x3 - Psychiatric Exam Psychiatric exam: Normal Affect - Skin Skin Exam: Dry, Intact Discharge Plan - Discharge Medications Prescriptions: Levetiracetam [Keppra] 750 mg PO BID #60 tablet Valproic Acid [Depakene] 500 mg PO BID #120 capsule - Follow Up Plan Condition: GUARDED Disposition: HOME/ ROUTINE Instructions: Stroke (DC), Seizures, Adult (DC) Additional Instructions: Follow up with Dr. Lee [place] [facility], Neurology [address] [facility], [address], [place] [address] [place] [address] get directions
== END 2018-07-04 18:59 | disposition home health service (06) | DRG 65 ==
LOC: H.ER 21:45 → H.ERHOLD 23:04 → H.TEL 06-30 01:12 → H.ICU/CCU 07-02 16:15 → H.TEL 07-04 00:30
PROVIDERS: ADMIT Internal Medicine; ATTEND Internal Medicine
DX: I63.441 Cerebral infarction due to embolism of right cerebellar artery (principal); G40.209 Localization-related (focal) (partial) symptomatic epilepsy and epileptic syndromes with complex partial seizures, not intractable, without status epilepticus; E11.9 Type 2 diabetes mellitus without complications; F14.90 Cocaine use, unspecified, uncomplicated; F17.210 Nicotine dependence, cigarettes, uncomplicated; H51.0 Palsy (spasm) of conjugate gaze; I10 Essential (primary) hypertension; Z79.84 Long term (current) use of oral hypoglycemic drugs

== ENCOUNTER 2018-07-08 14:23 | Emergency (ER) | payer OTHER ==
[2018-07-08 14:47] VITALS: TEMP 98.6
[2018-07-08] MEDS ORDERED: Sodium Chloride 0.9% 1,000 ML IV STA (16:01)
--- NOTE | 2018-07-08 16:06 | ED PDOC ---
HPI: Headache Time Seen by Provider: 07/08/18 15:48 Chief Complaint (Nursing): Headache Chief Complaint (Provider): headache History Per: Patient History/Exam Limitations: no limitations Additional Complaint(s): 53 y/o M with newly diagnosed DM and CVA that presented with seizures who presents with URIOSTEGUI. Patient was seen hospitalized from 06/29 - 07/04 for seizures at which time was found to have subacute occipital infarct. The night that he was discharged he developed a left sided URIOSTEGUI. He has been taking Tylenol with minimal improvement. + photophobia. This morning he woke up with blurry vision in both eyes. Denies weakness, gait instability, speech disturbance. Further denies N/V. Past Medical History Reviewed: Historical Data, Nursing Documentation, Vital Signs Vital Signs: Last Vital Signs Temp 98.6 F 07/08/18 14:40 Pulse 73 07/08/18 14:40 Resp 18 07/08/18 14:40 BP 164/97 H 07/08/18 14:40 Pulse Ox 100 07/08/18 14:40 - Medical History PMH: CVA, Diabetes, HTN Denies: HIV, Chronic Kidney Disease - Family History Family History: States: Unknown Family Hx - Home Medications Home Medications: Ambulatory Orders Medication Instructions Recorded metFORMIN [glucOPHAGE] 250 mg PO BID #60 tab 06/28/18 Levetiracetam [Keppra] 750 mg PO BID #60 tablet 07/04/18 Valproic Acid [Depakene] 500 mg PO BID #120 capsule 07/04/18 - Allergies Allergies/Adverse Reactions: Allergies Allergy/AdvReac Type Severity Reaction Status Date / Time No Known Allergies Allergy Verified 06/29/18 21:48 Review of Systems Constitutional: Negative for: Fever, Chills Cardiovascular: Negative for: Chest Pain, Palpitations Gastrointestinal: Negative for: Nausea, Vomiting Neurological: Positive for: Headache. Negative for: Weakness, Numbness, Dizziness Physical Exam - Reviewed Nursing Documentation Reviewed: Yes Vital Signs Reviewed: Yes - Physical Exam Appears: Positive for: Uncomfortable Head Exam: Positive for: ATRAUMATIC Skin: Positive for: Normal Color Eye Exam: Positive for: EOMI, PERRL. Negative for: Nystagmus, Conjunctival injection Neck: Positive for: Painless ROM Cardiovascular/Chest: Positive for: Regular Rate, Rhythm Respiratory: Positive for: Normal Breath Sounds Lymphatic: Positive for: Normal Exam Neurological/Psych: Positive for: Awake, Alert, Symmetric/Intact Strength (in B/L upper and lower extremities), Oriented, Gait (stable), road inspector II-XII (smile symmetrical, no tongue deviation). Negative for: Lethargic, Motor/Sensory Deficits (sensation to light touch intact in B/L upper and lower extremities. ), Facial Droop - Laboratory Results Result Diagrams: 07/08/18 16:20 07/08/18 17:26 - ECG O2 Sat by Pulse Oximetry: 100 Medical Decision Making Medical Decision Making: CBC, CMP, PT/PTT/INR Head CT w/o contrast NS 1L IV x 1 Toradol 30mg IM x 1 Reglan 10mg IV x [address]: No acute interval change from prior study. 19:30: re-evaluated; headache has resolved and patient feeling much better, no neuro deficits. Case discussed with Dr. Lee who agreed that patient could be discharged with strict return instructions provided. SBP 170 prior to d/c (admission to ER 160s). Continues to deny URIOSTEGUI. Patient and family advised to follow up with PCP within the next 48hrs for re-evaluation given recent stroke and desire to not lower BP abruptly. Patient and family demonstrated understanding. STable for d/c home with strict return instructions provided. Disposition - Clinical Impression Clinical Impression: Acute headache - Patient ED Disposition Is Patient to be Admitted: No Discussed With : Tana Lee - Disposition Referrals: Tana Lee MD [Medical Doctor] - Disposition: Routine/Home Disposition Time: 19:37 Condition: STABLE Additional Instructions: Follow up with Dr. Lee, your neurologist, as planned. Follow up with primary care doctor within the next 48hrs. Take Tylenol for headache. Return to ER if you have recurrent Headache with blurry vision or if your symptoms worsen. Instructions: Acute Headache (ED) Forms: [employer] (Greek) Print Language: GREENLANDIC
[2018-07-08 16:33] LABS: BASO % 0.4 % (0.0-2.0); EOS # 0.1 K/uL (0.0-0.7); EOS % 0.8 % (0.0-4.0); HEMOGLOBIN 9.4 g/dL (12.0-18.0); LYMPH # 1.1 K/uL (1.0-4.3); LYMPH % 15.8 % (20.0-40.0); MEAN CELL VOLUME 93.4 fl (80.0-94.0); MEAN CORPUSCULAR HEMOGLOBIN 30.6 pg (27.0-31.0); MEAN CORPUSCULAR HGB CONC 32.8 g/dL (33.0-37.0); MEAN PLATELET VOLUME 9.5 fl (7.2-11.7); MONO # 0.5 K/uL (0.0-0.8); MONO % 6.7 % (0.0-10.0); NEUT # 5.4 K/uL (1.8-7.0); NEUT % 76.3 % (50.0-75.0); RBC 3.06 Mil/uL (4.40-5.90); RED CELL DISTRIBUTION WIDTH 11.9 % (11.5-14.5); WHITE BLOOD COUNT 7.1 K/uL (4.8-10.8)
[2018-07-08 16:57] LABS: BLOOD UREA NITROGEN 7 mg/dl (9-20); CALCIUM 4.3 mg/dL (8.4-10.2); GFR NON-AFRICAN AMERICAN > 60
--- NOTE | 2018-07-08 17:02 | CT ---
Date of service: 07/08/2018 PROCEDURE: CT HEAD WITHOUT CONTRAST. HISTORY: URIOSTEGUI s/p recent stroke COMPARISON: 06/28/2018, 06/29/2018, 07/02/2018. Serial CT scans of the head. 06/30/2018 MRI brain TECHNIQUE: Axial computed tomography images were obtained through the head/brain without intravenous contrast. Supplemental Coronal and Sagittal projections created and reviewed. Radiation dose: Total exam DLP = <inf_radiation_dlp> mGy-cm. This CT exam was performed using one or more of the following dose reduction techniques: Automated exposure control, adjustment of the mA and/or kV according to patient size, and/or use of iterative reconstruction technique. FINDINGS: HEMORRHAGE: No intracranial hemorrhage. BRAIN: No mass effect or edema. No atrophy or chronic microvascular ischemic changes. VENTRICLES: Unremarkable. No hydrocephalus. CALVARIUM: Unremarkable. PARANASAL SINUSES: Unremarkable as visualized. No significant inflammatory changes. MASTOID AIR CELLS: Unremarkable as visualized. No inflammatory changes. OTHER FINDINGS: None. IMPRESSION: No acute intracranial abnormalities. No significant findings to account for the clinical presentation. No significant interval change compared to the prior examination(s).
[2018-07-08 17:51] LABS: ALB/GLOB RATIO 1.4 (1.0-2.1); ALBUMIN 4.1 g/dL (3.5-5.0); ALT/SGPT 38 U/L (21-72); AST/SGOT 23 U/L (17-59); BLOOD UREA NITROGEN 12 mg/dl (9-20); CALCIUM 9.3 mg/dL (8.4-10.2); GFR NON-AFRICAN AMERICAN > 60
[2018-07-08 20:13] VITALS: BP 168/97; PULSE 78; RESP 17
[2018-07-08 20:16] VITALS: O2SAT 100
--- NOTE | 2018-07-09 07:18 | CARD ---
APPROVED REPORT Date of service: 07/08/2018 EKG Measurement Heart [id number] <Conclusion> Normal sinus rhythm Possible Left atrial enlargement Incomplete right bundle branch block Left anterior fascicular block Abnormal ECG
== END 2018-07-08 20:17 | disposition home or self-care (01) ==
LOC: H.ER 14:23
DX: R51 Headache (principal); E11.9 Type 2 diabetes mellitus without complications; I10 Essential (primary) hypertension; R56.9 Unspecified convulsions; Z79.84 Long term (current) use of oral hypoglycemic drugs; Z86.73 Personal history of transient ischemic attack (TIA), and cerebral infarction without residual deficits
CPT/HCPCS: 70450; 80048; 80053; 82948; 85025; 93005; 96374; 96375; 99285; J1885; J2765; J7030